=== PATIENT | male | born 1930 | race Caucasian/White ===

== ENCOUNTER → 2016-05-16 | Outpatient (CLI) | payer BC ==
[~2016-05-16] MED LIST: ASPEC325 PO; ASPI81TA28 PO; CAND32TA2 PO; CHROMAX PLUS PO; FLX5 PO; GARLTAB3 PO; LDDP5 TD; MULT-506 PO; NRV5 PO; OPTIRAY 320 IV PRN; OXYC-57 PO; PRED-301 PO; PRED10TA PO; PRED20TA PO; RED YEAST RICE PO; SYMIN INH; TAMS0.4C38 PO; VNTHFA/IN INH; [UNRECOGNIZED DRUG - CODE]; [UNRECOGNIZED DRUG - CODE] PO
[2016-05-16 16:14] LABS: BLOOD UREA NITROGEN 20 mg/dl (7-18); BUN/CREATININE RATIO 15.2 (10-20); CALCIUM 8.6 mg/dl (8.5-10.1); CARBON DIOXIDE 30 mmol/L (21-32); CHLORIDE 105 mmol/L (98-107); GLUCOSE 120 mg/dl (70-99); MAGNESIUM 2.3 mg/dl (1.8-2.4); POTASSIUM 4.2 mmol/L (3.5-5.1); SODIUM 143 mmol/L (136-145)
[2016-05-16 16:28] LABS: RATIO 8.3 mcg/mg (0-30.0)
--- NOTE | 2016-05-16 17:21 | DIAGNOSTIC IMAGING REPORT ---
ABDOMEN AND PELVIS CT WITH IV AND ORAL CONTRAST CT DOSE: 766.85 mGycm HISTORY: Generalized abdominal pain. Constipation. TECHNIQUE: Multiaxial CT images of the abdomen and pelvis were performed following the use of intravenous and oral contrast. COMPARISON STUDY: Abdomen and pelvis CT 03/07/2008. FINDINGS: The lung bases are essentially clear. No suspicious lytic or blastic osseous lesions. There are few hypodense lesions within the liver which remain stable. Therefore, these are considered to be benign and favor cysts. The largest in the right hepatic lobe measures 15 mm. Prior cholecystectomy. Small diverticulum at the second portion of the duodenum. The pancreas, adrenal glands are unremarkable. Bilateral cortical renal scarring remains unchanged. No hydronephrosis. No retroperitoneal lymphadenopathy. Mild thickening of the bladder wall is not significant changed. The prostate gland remains mildly enlarged. No pelvic fluid. The spleen is slight increased in size. However, the spleen measures 10 cm in length. A few colonic diverticula. Small to moderate amount of well-formed stool seen within the colon. No bowel wall thickening or obstruction. Normal appendix. IMPRESSION: 1. No bowel wall thickening or obstruction. 2. Small to moderate amount of well-formed stool seen within the colon. 3. The spleen has slightly increased in size compared to prior study. However, the spleen measures 10 cm in length which is considered to be within the range of normal limits. 4. Colonic diverticulosis. 5. Bladder wall thickening, unchanged. 6. Normal appendix. 7. Cholecystectomy. Electronically signed by: Kristopher Beaulieu M.D. 05/16/2016 5:20 PM Dictated Date/Time: 05/16/2016 5:12 PM
== END | disposition home or self-care (01) ==
LOC: C.CTS 14:53
PROVIDERS: ATTEND Family Medicine
DX: K59.00 Constipation, unspecified (principal); E11.9 Type 2 diabetes mellitus without complications; M54.5 Low back pain; G47.62 Sleep related leg cramps

== ENCOUNTER → 2016-06-12 | Outpatient (CLI) | payer BC ==
[~2016-06-12] MED LIST changes: -OPTIRAY 320 IV PRN
[2016-06-12 16:07] LABS: BASO % 0.4 %; BASO ABS # 0.07 K/uL (0-0.2); EOS % 14.3 %; HEMATOCRIT 42.7 % (42-52); IG% 0.8 %; LYMPH % 17.2 %; LYMPH ABS # 3.04 K/uL (1.2-3.4); MEAN CELL VOLUME 95.5 fL (80-100); MEAN CORPUSCULAR HEMOGLOBIN 32.9 pg (25-34); MEAN PLATELET VOLUME 10.9 fL (7.4-10.4); MONO % 8.9 %; NEUT % 58.4 %; PLATELET COUNT 345 K/uL (130-400); RED BLOOD COUNT 4.47 M/uL (4.7-6.1); WHITE BLOOD COUNT 17.63 K/uL (4.8-10.8)
--- NOTE | 2016-06-12 16:22 | DIAGNOSTIC IMAGING REPORT ---
HEAD CT NONCONTRAST CT DOSE: 724.83 mGy.cm HISTORY: PT WENT TO LAB FIRST - FALL, INTRACRANIAL INJURY W/ LOSS OF TECHNIQUE: Multiaxial CT images of the head were performed without the use of intravenous contrast. Automated exposure control was utilized for this study. Comparison: None. Findings: The paranasal sinuses and mastoid air cells are clear. The calvarium and skull base are intact. There is no mass, hematoma, midline shift, acute infarct. White matter hypodensity is nonspecific but suggestive of microvascular ischemic change. The ventricles and sulci demonstrate mild age-related involutional changes. Mildly depressed nasal bone fractures which appear to be old. Impression: No acute intracranial abnormality. Atrophy and microvascular ischemic changes. Electronically signed by: Kristopher Beaulieu M.D. 06/12/2016 4:20 PM Dictated Date/Time: 06/12/2016 4:14 PM
[2016-06-12 16:24] LABS: COMPLETE YES; MEAN CORPUSCULAR HGB CONC 34.4 g/dl (32-36)
[2016-06-12 16:37] LABS: ALB/GLOB RATIO 0.9 (0.9-2); ALKALINE PHOSPHATASE 52 U/L (45-117); ALT/SGPT 15 U/L (12-78); AST/SGOT 12 U/L (15-37); BLOOD UREA NITROGEN 22 mg/dl (7-18); BUN/CREATININE RATIO 15.4 (10-20); C-REACTIVE PROTEIN 9.33 mg/dl (0-0.29); CALCIUM 8.5 mg/dl (8.5-10.1); CARBON DIOXIDE 30 mmol/L (21-32); CHLORIDE 105 mmol/L (98-107); GLUCOSE 180 mg/dl (70-99); POTASSIUM 4.1 mmol/L (3.5-5.1); SODIUM 142 mmol/L (136-145)
[2016-06-12 17:05] LABS: LYME DISEASE AB IGG NEG (NEG); LYME DISEASE AB IGM NEG (NEG)
== END | disposition home or self-care (01) ==
LOC: C.CTS 15:25
PROVIDERS: ATTEND Family Medicine
DX: R21 Rash and other nonspecific skin eruption (principal); M62.81 Muscle weakness (generalized); M79.1 Myalgia; S06.9X9A Unspecified intracranial injury with loss of consciousness of unspecified duration, initial encounter; W06.XXXA Fall from bed, initial encounter

== ENCOUNTER 2016-06-14 08:29 | Inpatient (IN) | payer BC, OTHER ==
[~2016-06-14] VITALS: Ht 177.8 cm; Wt 80.0 kg
[~2016-06-14 08:29] MED LIST changes: -ASPI81TA28 PO; -CAND32TA2 PO; -FLX5 PO; -LDDP5 TD; -NRV5 PO; -PRED-301 PO; -PRED10TA PO; -PRED20TA PO; -SYMIN INH; -TAMS0.4C38 PO; -VNTHFA/IN INH; -[UNRECOGNIZED DRUG - CODE]
[2016-06-14] MEDS ORDERED: CAND32TA2 PO (09:05)
[2016-06-14] MEDS ORDERED: TAMS0.4C38 PO (09:05)
[2016-06-14] MEDS ORDERED: VNTHFA/IN INH (09:05)
[2016-06-14] MEDS ORDERED: ASPI81TA28 PO (09:05)
[2016-06-14] MEDS ORDERED: [UNRECOGNIZED DRUG - CODE] (09:07)
[2016-06-14] MEDS ORDERED: SODIUM CHLORIDE 0.9% 500ML 500 ML IV STA (09:31)
[2016-06-14] MEDS ORDERED: HYDROmorphone INJ 0.5 MG/0.5 ML SYR IV STA (09:31)
--- NOTE | 2016-06-14 09:34 | EMERGENCY ROOM VISIT NOTE ---
History Report prepared by Trera: Yariel Abbott Under the Supervision of: Dr. Kvng Sanchez M.D. First contact with patient: 09:21 Chief Complaint: PAIN (GENERALIZED) Stated Complaint: BODY PAIN History of Present Illness The patient is a 85 year old male who presents to the Emergency Room with complaints of worsening neck pain starting yesterday after a fall. The patient states that he was here, and they took a CT scan of his head however they did not image his neck. The patient states that when he fell he hit the back side of his head on the right side. The patient states that the pain is worsened with turning his neck. The patient additionally states that he feels generally very weak. The patient's state that the patient has been sick for about a month now, and he has had blood work done recently. The patient denies any abdominal pain. Source of History: patient, spouse/significant other Onset: yesterday Position: neck Timing: worsening Modifying Factors (Worsening): other (turning his neck) Associated Symptoms: + weakness, No abdominal pain Review of Systems See HPI for pertinent positives & negatives. A total of 10 systems reviewed and were otherwise negative. Past Medical & Surgical Medical Problems: (1) Asthma (2) Diabetes (3) HTN (hypertension) Surgical Problems: (1) H/O shoulder replacement Family History Diabetes mellitus FH: lung disease FHx: cancer Hypertension Social History Smoking Status: Former Smoker Marital Status: Housing Status: lives with family Occupation Status: retired Current/Historical Medications Scheduled Albuterol Hfa (Ventolin Hfa), 2-4 PUFFS INH Q6H Aspirin (Aspirin Ec), 81 MG PO DAILY Candesartan Cilexetil (Atacand), 1 TAB PO DAILY Multivitamin (Multivitamin), 1 TAB PO DAILY Tamsulosin Hcl (Flomax), 1 CAP PO DAILY Miscellaneous Medications Undecylenic Acid (Bulk) (Undecylenic Acid) Allergies Coded Allergies: Penicillins (Verified Allergy, Unknown, 06/14/16) Physical Exam Vital Signs Date Time Temp Pulse Resp B/P Pulse Ox O2 Delivery O2 Flow Rate FiO2 06/14/16 11:25 93 Room Air 06/14/16 09:57 77 16 154/77 93 Room Air 06/14/16 08:36 37.3 77 18 167/88 94 Room Air Physical Exam GENERAL: Patient is in moderate distress and uncomfortable appearing. HEENT: No acute trauma, normocephalic atraumatic, mucous membranes dry, no nasal congestion, no scleral icterus. NECK: Tenderness to palpation in the mid and upper right c-spine. Pain with any range of motion of the neck which is significantly reduced due to the pain. LUNGS: No dyspnea. Clear to auscultation and equal bilaterally. No wheeze, no rhonchi. HEART: Regular rate and rhythm. No murmurs, rubs, gallops appreciated. ABDOMEN: Soft, nontender, bowel sounds positive, no masses appreciated, no peritonitis. BACK: No midline tenderness, no CVA tenderness EXTREMITIES: Normal motion all extremities, no cyanosis, no edema. NEUROLOGIC: Alert and oriented, no acute motor or sensory deficits, no focal weakness, cranial nerves grossly intact. SKIN: No rash, no jaundice, no diaphoresis. Medical Decision & Procedures ER Provider Diagnostic Interpretation: X ray results and stated below per my interpretation and radiologist interpretation. Other radiology results and stated below per my review and radiologist interpretation: CHEST ONE VIEW PORTABLE CLINICAL HISTORY: Generalized Weakness COMPARISON STUDY: No previous studies for comparison. FINDINGS: The heart is mildly enlarged. There is a suboptimal inspiration. There is mild interstitial thickening, possibly secondary to a suboptimal inspiration. There is no lobar consolidation. There is no overt failure. There are no pleural effusions. There are postsurgical changes of a right shoulder arthroplasty.[ IMPRESSION: 1. Mild cardiomegaly 2. No evidence of focal pulmonary consolidation 3. Mild interstitial prominence but no evidence of overt failure Electronically signed by: Bhanu Kim M.D. 06/14/2016 10:02 AM Dictated Date/Time: 06/14/2016 10:[address] OF THE CERVICAL SPINE CLINICAL HISTORY: Right-sided neck pain status post trauma COMPARISON STUDY: No previous studies for comparison. CT DOSE: 406.95 mGy.cm TECHNIQUE: CT scan of the cervical spine was performed from the skull base to the thoracic inlet. Images are reviewed in the axial, sagittal, and coronal planes. IV contrast was not administered for this examination. FINDINGS: The visualized portions of the lung apices reveal no evidence of pneumothorax. The prevertebral soft tissues are normal. No fractures or traumatic subluxations are visualized. There are advanced multilevel degenerative changes. There is slight reversal of the normal cervical lordosis. 2.6 mm of anterior subluxation of C7 on T1 is felt to be degenerative. IMPRESSION: Multilevel degenerative change. Reversal of the normal cervical lordosis. No acute fractures or traumatic subluxations are visualized. Electronically signed by: Bhanu Kim M.D. 06/14/2016 10:25 AM Dictated Date/Time: 06/14/2016 10:22 AM Laboratory Results 06/14/16 09:50 Red Blood Count 4.41, Mean Corpuscular Volume 93.7, Mean Corpuscular Hemoglobin 31.7, Mean Corpuscular Hemoglobin Concent 33.9, Mean Platelet Volume 9.9, Neutrophils (%) (Auto) 58.8, Lymphocytes (%) (Auto) 16.4, Monocytes (%) (Auto) 9.4, Eosinophils (%) (Auto) 14.3, Basophils (%) (Auto) 0.4, Neutrophils # (Auto ) 10.60, Lymphocytes # (Auto) 2.95, Monocytes # (Auto) 1.69, Eosinophils # (Auto ) 2.57, Basophils # (Auto) 0.07 06/14/16 09:50 06/14/16 11:00 Test 06/14/16 09:50 06/14/16 11:00 06/14/16 12:30 White Blood Count 18.00 K/uL (4.8-10.8) Red Blood Count 4.41 M/uL (4.7-6.1) Hemoglobin 14.0 g/dL (14.0-18.0) Hematocrit 41.3 % (42-52) Mean Corpuscular Volume 93.7 fL (80-100) Mean Corpuscular Hemoglobin 31.7 pg (25-34) Mean Corpuscular Hemoglobin Concent 33.9 g/dl (32-36) Platelet Count 308 K/uL (130-400) Mean Platelet Volume 9.9 fL (7.4-10.4) Neutrophils (%) (Auto) 58.8 % Lymphocytes (%) (Auto) 16.4 % Monocytes (%) (Auto) 9.4 % Eosinophils (%) (Auto) 14.3 % Basophils (%) (Auto) 0.4 % Neutrophils # (Auto) 10.60 K/uL (1.4-6.5) Lymphocytes # (Auto) 2.95 K/uL (1.2-3.4) Monocytes # (Auto) 1.69 K/uL (0.11-0.59) Eosinophils # (Auto) 2.57 K/uL (0-0.5) Basophils # (Auto) 0.07 K/uL (0-0.2) RDW Standard Deviation 56.5 fL (36.4-46.3) RDW Coefficient of Variation 17.0 % (11.5-14.5) Immature Granulocyte % (Auto) 0.7 % Immature Granulocyte # (Auto) 0.12 K/uL (0.00-0.02) Anion Gap 4.0 mmol/L (3-11) Est Creatinine Clear Calc Drug Dose 46.5 ml/min Estimated GFR () 63.5 Estimated GFR (Non- 54.8 BUN/Creatinine Ratio 13.8 (10-20) Calcium Level 8.6 mg/dl (8.5-10.1) Phosphorus Level 3.2 mg/dl (2.5-4.9) Total Bilirubin 1.1 mg/dl (0.2-1) Alanine Aminotransferase (ALT/SGPT) 14 U/L (12-78) Alkaline Phosphatase 48 U/L (45-117) Creatine Kinase MB 1.1 ng/ml (0.5-3.6) Creatine Kinase MB Ratio (0-3.0) Troponin I < 0.015 ng/ml (0-0.045) C-Reactive Protein 11.20 mg/dl (0-0.29) Total Protein 7.0 gm/dl (6.4-8.2) Albumin 2.9 gm/dl (3.4-5.0) Lipase 146 U/L (73-393) Magnesium Level 2.2 mg/dl (1.8-2.4) Direct Bilirubin 0.2 mg/dl (0-0.2) Aspartate Amino Transf (AST/SGOT) 9 U/L (15-37) Total Creatine Kinase 61 U/L (39-308) Thyroid Stimulating Hormone (TSH) 0.985 uIu/ml (0.300-4.500) Urine Color YELLOW Urine Appearance CLEAR (CLEAR) Urine pH 5.5 (4.5-7.5) Urine Specific [place] 1.014 (1.000-1.030) Urine Protein NEG (NEG) Urine Glucose (UA) NEG (NEG) Urine Ketones NEG (NEG) Urine Occult Blood NEG (NEG) Urine Nitrite NEG (NEG) Urine Bilirubin NEG (NEG) Urine Urobilinogen NEG (NEG) Urine Leukocyte Esterase NEG (NEG) Urine WBC (Auto) 0 /hpf (0-5) Urine RBC (Auto) 0-4 /hpf (0-4) Urine Hyaline Casts (Auto) 0 /lpf (0-5) Urine Epithelial Cells (Auto) 0-5 /lpf (0-5) Urine Bacteria (Auto) NEG (NEG) Laboratory results as reviewed by me. Medications Administered Medications (Trade) Dose Ordered Sig/Christel Route Start Time Stop Time Status Last Admin Dose Admin Hydromorphone HCl 0.5 mg 0.5 mg NOW STAT IV 06/14/16 09:31 06/14/16 09:33 DC 06/14/16 10:00 0.5 MG Sodium Chloride 500 ml @ 999 mls/hr Q31M STAT IV 06/14/16 09:31 06/14/16 10:01 DC 06/14/16 10:00 999 MLS/HR Sodium Chloride (Nss 1000ml) 1,000 ml @ 80 mls/hr [id number] IV 06/14/16 12:30 07/14/16 12:29 06/14/16 15:42 80 MLS/HR ECG Indication: other (pain) Rate (beats per minute): 78 Rhythm: normal sinus Findings: no acute ischemic change, no ectopy ED Course 0921: The patient was evaluated in room B10. A complete history and physical exam was performed. 0931: Sodium Chloride 500 ml @ 999 mls/hr IV, Dilaudid Inj 0.5mg IV 1055: I reevaluated the patient, and he was resting. 1105: I discussed the patient's case with Dr. Gupta. He is going to evaluate the patient for further treatment. Medical Decision Differential: Sepsis, Infectious (UTI/Pneumonia/Meningitis/etc), Metabolic/ Electrolyte Abnormality, Cardiac, Hepatic, Endocrine, Toxicologic, Neurologic, cervical fracture, whiplash amongst other pathologies entertained. Pleasant 85 yr old male arrives with complaint of right neck pain and generalized weakness. Neck pain post fall last week with normal CT head already. No focal neural deficits. Right cervical TTP though fortunately CT Cervical negative. He has elevated WBC which is now compared to labs from several years ago. No fevers, UTI symptoms and CXR clear. No acute infectious rash appreciated. CRP is quite elevated consistent with inflammatory process. With enlarged spleen noted 1 month ago it is concerning that there may be some hematologic issue vs viral? He is not septic and without fevers would hold on abx unless clear source develops. Given weakness, continued pain and unusual inflammatory markers will bring in for further work-up, especially given he is too weak to get around safely. Consults Time Called: 1102 Consulting Physician: Dr. Gupta Returned Call: [phone] I discussed the patient's case with Dr. Gupta. He is going to evaluate the patient for further treatment. Impression Primary Impression: Generalized weakness Additional Impressions: Fall Ambulatory dysfunction Inflammatory process Scribe Attestation The scribe's documentation has been prepared under my direction and personally reviewed by me in its entirety. I confirm that the note above accurately reflects all work, treatment, procedures, and medical decision making performed by me. Departure Information Dispostion Being Evaluated By Hospitalist James Monet M.D. (PCP) Problem Qualifiers Additional Impressions: Fall Encounter type: initial encounter Qualified Codes: W19.XXXA - Unspecified fall, initial encounter
--- NOTE | 2016-06-14 10:04 | DIAGNOSTIC IMAGING REPORT ---
CHEST ONE VIEW PORTABLE CLINICAL HISTORY: Generalized Weakness COMPARISON STUDY: No previous studies for comparison. FINDINGS: The heart is mildly enlarged. There is a suboptimal inspiration. There is mild interstitial thickening, possibly secondary to a suboptimal inspiration. There is no lobar consolidation. There is no overt failure. There are no pleural effusions. There are postsurgical changes of a right shoulder arthroplasty.[ IMPRESSION: 1. Mild cardiomegaly 2. No evidence of focal pulmonary consolidation 3. Mild interstitial prominence but no evidence of overt failure Electronically signed by: Bhanu Kim M.D. 06/14/2016 10:02 AM Dictated Date/Time: 06/14/2016 10:01 AM
[2016-06-14 10:23] LABS: BASO % 0.4 %; BASO ABS # 0.07 K/uL (0-0.2); COMPLETE YES; EOS % 14.3 %; HEMATOCRIT 41.3 % (42-52); IG% 0.7 %; LYMPH % 16.4 %; LYMPH ABS # 2.95 K/uL (1.2-3.4); MEAN CELL VOLUME 93.7 fL (80-100); MEAN CORPUSCULAR HEMOGLOBIN 31.7 pg (25-34); MEAN CORPUSCULAR HGB CONC 33.9 g/dl (32-36); MEAN PLATELET VOLUME 9.9 fL (7.4-10.4); MONO % 9.4 %; NEUT % 58.8 %; PLATELET COUNT 308 K/uL (130-400); RED BLOOD COUNT 4.41 M/uL (4.7-6.1)
--- NOTE | 2016-06-14 10:26 | DIAGNOSTIC IMAGING REPORT ---
CT OF THE CERVICAL SPINE CLINICAL HISTORY: Right-sided neck pain status post trauma COMPARISON STUDY: No previous studies for comparison. CT DOSE: 406.95 mGy.cm TECHNIQUE: CT scan of the cervical spine was performed from the skull base to the thoracic inlet. Images are reviewed in the axial, sagittal, and coronal planes. IV contrast was not administered for this examination. FINDINGS: The visualized portions of the lung apices reveal no evidence of pneumothorax. The prevertebral soft tissues are normal. No fractures or traumatic subluxations are visualized. There are advanced multilevel degenerative changes. There is slight reversal of the normal cervical lordosis. 2.6 mm of anterior subluxation of C7 on T1 is felt to be degenerative. IMPRESSION: Multilevel degenerative change. Reversal of the normal cervical lordosis. No acute fractures or traumatic subluxations are visualized. Electronically signed by: Bhanu Kim M.D. 06/14/2016 10:25 AM Dictated Date/Time: 06/14/2016 10:22 AM
[2016-06-14 10:51] LABS: ALKALINE PHOSPHATASE 48 U/L (45-117); ALT/SGPT 14 U/L (12-78); BLOOD UREA NITROGEN 17 mg/dl (7-18); BUN/CREATININE RATIO 13.8 (10-20); CALCIUM 8.6 mg/dl (8.5-10.1); CARBON DIOXIDE 31 mmol/L (21-32); CHLORIDE 100 mmol/L (98-107); GLUCOSE 157 mg/dl (70-99); PHOSPHORUS 3.2 mg/dl (2.5-4.9); SODIUM 135 mmol/L (136-145)
[2016-06-14 11:25] VITALS: O2SAT 93; Ht 177.8 cm; Wt 80.0 kg
[2016-06-14 12:03] LABS: MAGNESIUM 2.2 mg/dl (1.8-2.4); POTASSIUM 3.9 mmol/L (3.5-5.1)
[2016-06-14] MEDS ORDERED: MAGNESIUM HYDROXIDE SUSP 30 ML UDC PO PRN (12:30)
[2016-06-14] MEDS ORDERED: KETOROLAC TROMETHAMINE 15 MG/ML VIAL IM PRN (12:30)
[2016-06-14] MEDS ORDERED: ACETAMINOPHEN 325 MG TAB PO PRN (12:30)
[2016-06-14] MEDS ORDERED: ALUMINUM/MAGNESIUM/SIMETH (MAALOX MAX) 30 ML UDC PO PRN (12:30)
[2016-06-14] MEDS ORDERED: ONDANSETRON INJ 2 MG/ML 2 ML VIAL IV PRN (12:30)
[2016-06-14] MEDS ORDERED: POLYETHYLENE (MIRALAX) 17 GM PACK PO PRN (12:30)
[2016-06-14 12:49] LABS: URINE APPEARANCE CLEAR (CLEAR); URINE BILIRUBIN NEG (NEG); URINE COLOR YELLOW; URINE EPITHELIAL CELL AUTO 0-5 /lpf (0-5); URINE NITRITE NEG (NEG); URINE PH 5.5 (4.5-7.5); URINE SPECIFIC GRAVITY 1.014 (1.000-1.030); UROBILINOGEN NEG (NEG); ZZUR CULT IF INDIC CLEAN CATCH NO
[2016-06-14 12:50] LABS: MANUAL MICROSCOPIC REQUIRED? NO; REVIEW REQ? NO
[2016-06-14] MEDS ORDERED: IV FLUIDS COMPLETED PRN (13:45)
[2016-06-14] MEDS ORDERED: HYDROmorphone INJ 0.5 MG/0.5 ML SYR ONE (14:02)
--- NOTE | 2016-06-14 14:31 | History and Physical ---
History & Physical Date & Time of Service: Jun 14, 2016 at 13:17 Chief Complaint: Body Pain Primary Care Physician: James Sinha M.D. History of Present Illness Source: patient, family, spouse, clinic records, hospital records Mr. Yap is an 85 y/o male with PMHx of Chronic Asthma/Bronchitis, HTN, T2DM ( managed off medications), and Mild BENSON (CPAP non-compliance) who presents to the ED c/o generalized body aches x 1 month and acute neck pain x 1 day. Patient reports that he has not felt his normal self in approx. 1 month. He has chronic bronchitis with associated productive cough that has remained unchanged during this month. Produces thick sputum and is light in color and denies SOB. However patient notes that he has had progressive lower extremity weakness that initially was manageable as he continued his normal exercise routine. As the weakness progressed he was not able to do his normal walks or go to the gym. In addition to the weakness he reports generalized aches. States "it felt like I had the flu, I just ache all over". Due to this ongoing weakness and aches he states that he fell on Thursday. He feels that his legs give out and denies precipitating symptoms but reports hitting the back of his head with LOC and was on the floor approx. 30-40 minutes. He reports R sided neck pain at the time but only head a Head CT which was negative for acute findings suggestive of stroke or cerebral hemorrhage. He has had poor sleep and neck pain has progressively gotten work. Pain is exacerbated with movements of the neck. States he takes a daily ASA and has only been using that for relief. Family was concerned as lower extremity weakness as progressed and they have difficulty helping him move at home. Was in the process of accessing a hospital bed to help at home. Of note patient also reports going 5 days without BP medications because he ran out and a refill was recently placed. Also, blood work was conducted as an outpatient which revealed similar findings as ED labs and a negative Lyme. He denies known rheumatological/immunological disorders. He denies fever/chills, CP, SOB, N/V, abdominal pain, dysuria, constipation/ diarrhea. In the ED, he was hydrated and pain managed with Dilaudid 0.5 mg IV. WBC noted at 18. CRP of 11.2. CXR with mild cardiomegaly but no infectious consolidation appreciated. CT of cervical spine without fracture but notes of degenerative changes. Abd/Pelvis CT (2016) with enlarged spleen compared to previous imaging however is at 10 cm. Family History Diabetes mellitus FH: lung disease FHx: cancer Hypertension Social History Smoking Status: Former Smoker Smokeless Tobacco Use: No Alcohol Use: none Drug Use: none Marital Status: Occupational Status: retired Immunizations History of Influenza Vaccine: Yes History of Tetanus Vaccine?: Yes History of Pneumococcal: Yes History of Hepatitis B Vaccine: No Multi-Drug Resistant Organisms History of MDRO: No Allergies Coded Allergies: Penicillins (Verified Allergy, Unknown, 06/14/16) Home Medications Scheduled Albuterol Hfa (Ventolin Hfa), 2-4 PUFFS INH Q6H Aspirin (Aspirin Ec), 81 MG PO DAILY Candesartan Cilexetil (Atacand), 1 TAB PO DAILY Multivitamin (Multivitamin), 1 TAB PO DAILY Tamsulosin Hcl (Flomax), 1 CAP PO DAILY Miscellaneous Medications Undecylenic Acid (Bulk) (Undecylenic Acid) Review of Systems Constitutional: + weakness, No chills, No fever Eyes: No worsening of vision ENT: No nasal symptoms, No sore throat, No trouble swallowing Respiratory: + cough (chronic), + sputum, No shortness of breath Cardiovascular: No chest pain, No palpitations Abdomen: No constipation, No diarrhea, No nausea, No pain, No vomiting Musculoskeletal: + muscle pain (R neck 2/2 fall), No calf pain, No swelling Genitourinary - Male: No dysuria Neurologic: + balance problems, + weakness (generalized lower extremity b/l), No numbness/tingling Hematologic / Lymphatic: No abnormal bleeding/bruising, No clotting problems Integumentary: No rash Physical Exam Vital Signs Date Time Temp Pulse Resp B/P Pulse Ox O2 Delivery O2 Flow Rate FiO2 06/14/16 11:25 93 Room Air 06/14/16 09:57 77 16 154/77 93 Room Air 06/14/16 08:36 37.3 77 18 167/88 94 Room Air General Appearance: WD/WN, no apparent distress Head: normocephalic, atraumatic Eyes: PERRL, EOMI, sclerae normal ENT: hearing grossly normal Neck: no JVD, trachea midline, + pertinent finding (tenderness to palpation along musculature; no tenderness to palpation of cervical spine) Respiratory/Chest: lungs clear, normal breath sounds, no respiratory distress, no accessory muscle use Cardiovascular: regular rate, rhythm, no gallop, no murmur Abdomen/GI: normal bowel sounds, non tender, soft Extremities/Musculoskelatal: no calf tenderness, no pedal edema Neurologic/Psych: alert, oriented x 3, + pertinent finding (intention tremor appreciated with movement of upper and lower extremities b/l) Skin: normal color, warm/dry Diagnostics Laboratory Results Results Past 24 Hours Test 06/14/16 09:50 06/14/16 11:00 06/14/16 12:30 Range/Units White Blood Count 18.00 4.8-10.8 K/uL Red Blood Count 4.41 4.7-6.1 M/uL Hemoglobin 14.0 14.0-18.0 g/dL Hematocrit 41.3 42-52 % Mean Corpuscular Volume 93.7 80-100 fL Mean Corpuscular Hemoglobin 31.7 25-34 pg Mean Corpuscular Hemoglobin Concent 33.9 32-36 g/dl Platelet Count 308 130-400 K/uL Mean Platelet Volume 9.9 7.4-10.4 fL Neutrophils (%) (Auto) 58.8 % Lymphocytes (%) (Auto) 16.4 % Monocytes (%) (Auto) 9.4 % Eosinophils (%) (Auto) 14.3 % Basophils (%) (Auto) 0.4 % Neutrophils # (Auto) 10.60 1.4-6.5 K/uL Lymphocytes # (Auto) 2.95 1.2-3.4 K/uL Monocytes # (Auto) 1.69 0.11-0.59 K/uL Eosinophils # (Auto) 2.57 0-0.5 K/uL Basophils # (Auto) 0.07 0-0.2 K/uL RDW Standard Deviation 56.5 36.4-46.3 fL RDW Coefficient of Variation 17.0 11.5-14.5 % Immature Granulocyte % (Auto) 0.7 % Immature Granulocyte # (Auto) 0.12 0.00-0.02 K/uL Sodium Level 135 136-145 mmol/L Potassium Level 3.9 3.5-5.1 mmol/L Chloride Level 100 98-107 mmol/L Carbon Dioxide Level 31 21-32 mmol/L Anion Gap 4.0 3-11 mmol/L Blood Urea Nitrogen 17 7-18 mg/dl Creatinine 1.20 0.60-1.40 mg/dl Est Creatinine Clear Calc Drug Dose 46.5 ml/min Estimated GFR () 63.5 Estimated GFR (Non- 54.8 BUN/Creatinine Ratio 13.8 10-20 Random Glucose 157 70-99 mg/dl Calcium Level 8.6 8.5-10.1 mg/dl Phosphorus Level 3.2 2.5-4.9 mg/dl Magnesium Level 2.2 1.8-2.4 mg/dl Total Bilirubin 1.1 0.2-1 mg/dl Direct Bilirubin 0.2 0-0.2 mg/dl Aspartate Amino Transf (AST/SGOT) 9 15-37 U/L Alanine Aminotransferase (ALT/SGPT) 14 12-78 U/L Alkaline Phosphatase 48 45-117 U/L Total Creatine Kinase 61 39-308 U/L Creatine Kinase MB 1.1 0.5-3.6 ng/ml Creatine Kinase MB Ratio 0-3.0 Troponin I < 0.015 0-0.045 ng/ml C-Reactive Protein 11.20 0-0.29 mg/dl Total Protein 7.0 6.4-8.2 gm/dl Albumin 2.9 3.4-5.0 gm/dl Lipase 146 73-393 U/L Urine Color YELLOW Urine Appearance CLEAR CLEAR Urine pH 5.5 4.5-7.5 Urine Specific [place] 1.014 1.000-1.030 Urine Protein NEG NEG Urine Glucose (UA) NEG NEG Urine Ketones NEG NEG Urine Occult Blood NEG NEG Urine Nitrite NEG NEG Urine Bilirubin NEG NEG Urine Urobilinogen NEG NEG Urine Leukocyte Esterase NEG NEG Urine WBC (Auto) 0 0-5 /hpf Urine RBC (Auto) 0-4 0-4 /hpf Urine Hyaline Casts (Auto) 0 0-5 /lpf Urine Epithelial Cells (Auto) 0-5 0-5 /lpf Urine Bacteria (Auto) NEG NEG Diagnostic Radiology CHEST ONE VIEW PORTABLE CLINICAL HISTORY: Generalized Weakness COMPARISON STUDY: No previous studies for comparison. FINDINGS: The heart is mildly enlarged. There is a suboptimal inspiration. There is mild interstitial thickening, possibly secondary to a suboptimal inspiration. There is no lobar consolidation. There is no overt failure. There are no pleural effusions. There are postsurgical changes of a right shoulder arthroplasty.[ IMPRESSION: 1. Mild cardiomegaly 2. No evidence of focal pulmonary consolidation 3. Mild interstitial prominence but no evidence of overt failure CT OF THE CERVICAL SPINE CLINICAL HISTORY: Right-sided neck pain status post trauma COMPARISON STUDY: No previous studies for comparison. CT DOSE: 406.95 mGy.cm TECHNIQUE: CT scan of the cervical spine was performed from the skull base to the thoracic inlet. Images are reviewed in the axial, sagittal, and coronal planes. IV contrast was not administered for this examination. FINDINGS: The visualized portions of the lung apices reveal no evidence of pneumothorax. The prevertebral soft tissues are normal. No fractures or traumatic subluxations are visualized. There are advanced multilevel degenerative changes. There is slight reversal of the normal cervical lordosis. 2.6 mm of anterior subluxation of C7 on T1 is felt to be degenerative. IMPRESSION: Multilevel degenerative change. Reversal of the normal cervical lordosis. No acute fractures or traumatic subluxations are visualized. Impression Assessment and Plan Mr. Yap is an 85 y/o male with PMHx of Chronic Asthma/Bronchitis, HTN, T2DM ( managed off medications), and Mild BENSON (CPAP non-compliance) who presents to the ED c/o generalized body aches x 1 month and acute neck pain x 1 day. Generalized Weakness: Elevated CRP - Infectious Etiology Unlikely - NSS 80 mL/hr - Trend CRP and CBC - elevations may be reactive in setting of recent fall - HbA1c - H/O T2DM off medications - denies numbness/tingling - MRI Lumbar Spine - PT/OT evaluations Recent Fall: LOC possible Syncope vs Leg Weakness - No evidence of rhabdomyolysis appreciated on labs; No focal neurological deficits appreciated - CT head negative but will obtain Brain MRI - U/S Carotids Neck Pain: No Fx on Imaging - Toradol 15 mg IV PRN and Lidocaine patch - Warm/Cold compresses HTN: - Cozaar 50 mg as interchange for Candesartan - Hydralazine 10 mg PRN Splenomegaly: - Kayla-Damian - reference lab DVT Prophylaxis: - Heparin 5000 units SC Q12H Code Status: FULL RESUSCITATION Disposition: - Re-evaluate labs in AM and assess symptoms - Await PT/OT evaluations - Rx for hospital bed - will discuss with case management for assistance with durable medical equipment set-up Level of Care Med/Surg Advanced Directives Existing Living Will: Yes Existing Power of Sustainable Design Consultant: Yes Resuscitation Status FULL RESUSCITATION VTE Prophylaxis VTE Risk Assessment Done? Y/N: Yes Risk Level: Moderate Reviewed: Pt Seen/Exam by Me, RN Notes, HO Notes, Prior Records, Labs, EKG History I agree with PA H&P with some modifications as below Mr. Yap is an 85 y/o male with PMHx of Chronic Asthma/Bronchitis, HTN, T2DM ( managed off medications), and Mild BENSON (CPAP non-compliance) who presents to the ED c/o generalized body aches x 1 month and acute neck pain x 1 day. Constitutional: denies: chills EENTM: denies: tearing Respiratory: negative: cough Genitourinary: negative discharge Musculoskeletal: positive: back pain, muscle pain (neck) Neurological/Psych: negative: depressed Hematologic/Lymphatic: negative: anemia General Appearance: WD/WN, no apparent distress Eye Exam: bilateral eye normal inspection Ears, Nose, Throat: hearing grossly normal, pharynx normal Neck: trachea midline, tender lateral Respiratory: chest non-tender, no respiratory distress Cardiovascular: regular rate, rhythm, no gallop Gastrointestinal: soft Extremities: normal inspection, no pedal edema Neurologic/Psychiatric: no motor/sensory deficits, alert, normal mood/affect, oriented x 3 Skin Characteristics: normal color Assessment/Plan A 85 y/o male with PMHx of Chronic Asthma/Bronchitis, HTN, T2DM (managed off medications), and Mild BENSON (CPAP non-compliance) who presents to the ED c/o generalized body aches x 1 month and acute neck pain x 1 day. Generalized Weakness: Elevated CRP, infectious Etiology Unlikely admit start NSS 80 mL/hr check MRI Lumbar Spine. check MRI brain r/o CVA PT/OT evaluations Recent Fall: LOC possible Syncope vs Leg Weakness No evidence of rhabdomyolysis appreciated on labs; No focal neurological deficits appreciated CT head negative but will obtain Brain MRI check U/S Carotids recently (3 weeks ago)had ECHO at outpatient [facility] office, need to obtain it Neck Pain: No Fx on Imaging start Toradol 15 mg IV PRN and Lidocaine patch, add PPI for stomach protection Warm/Cold compresses HTN: start Cozaar 50 mg as interchange for Candesartan Hydralazine 10 mg PRN Splenomegaly: check Kayla-Damian virus DVT Prophylaxis: Heparin 5000 units SC Q12H FULL RESUSCITATION May need placement pending PT/OT evals time spent 50 min case discussed with Meenu CARDENAS
--- NOTE | 2016-06-14 15:28 | DIAGNOSTIC IMAGING REPORT ---
ULTRASOUND OF THE CAROTID ARTERIES CLINICAL HISTORY: Syncope COMPARISON STUDY: None. TECHNIQUE: Real-time, grayscale, and color Doppler sonography of the carotid arteries was performed. Imaging reviewed in the transverse and longitudinal planes. NASCET criteria was utilized for stenosis calcification. FINDINGS: There is mild calcific shadowing atherosclerotic plaque present bilaterally. The peak systolic velocity within the right internal carotid artery is 92 cm/sec. The systolic velocity ratio of right internal to common carotid artery is 1.3. The peak systolic velocity within the left internal carotid artery is 103 cm/sec. The systolic velocity ratio left internal to common carotid artery is 1.5. Antegrade flow is seen in the vertebral arteries. The external carotid arteries are patent. IMPRESSION: Atheromatous plaque. No evidence of hemodynamically significant carotid stenosis Electronically signed by: Bhanu Kim M.D. 06/14/2016 3:27 PM Dictated Date/Time: 06/14/2016 3:25 PM
[2016-06-14 15:38] VITALS: BP 183/95; PULSE 75; TEMP 36.9; O2SAT 93
[2016-06-14] MEDS: SODIUM CHLORIDE 0.9% 1000ML 1,000 ML IV SCH (15:42)
[2016-06-14 16:20] LABS: INR 1.1 (0.9-1.1); PARTIAL THROMBOPLASTIN RATIO 1.1; PROTHROMBIN TIME (PATIENT) 11.9 SECONDS (9.0-12.0)
[2016-06-14 16:44] VITALS: O2SAT 93
[2016-06-14] MEDS: LOSARTAN POTASSIUM 50 MG TAB PO SCH (17:04)
[2016-06-14] MEDS: ALBUTEROL HFA 8 GM INHALER INH SCH ×2 (17:38→23:41)
[2016-06-14] MEDS: HEPARIN SOD 5000 UNIT/0.5 ML CARP SQ SCH (21:30)
[2016-06-15 00:05] VITALS: BP 154/85; PULSE 73; TEMP 36.3; O2SAT 92
[2016-06-15] MEDS: SODIUM CHLORIDE 0.9% 1000ML 1,000 ML IV SCH ×2 (00:59→14:21)
[2016-06-15] MEDS: ALBUTEROL HFA 8 GM INHALER INH SCH ×4 (05:47→23:44)
[2016-06-15 06:49] LABS: BASO % 0.4 %; BASO ABS # 0.07 K/uL (0-0.2); COMPLETE YES; EOS % 18.1 %; HEMATOCRIT 42.8 % (42-52); IG% 0.8 %; LYMPH % 24.7 %; LYMPH ABS # 4.27 K/uL (1.2-3.4); MEAN CELL VOLUME 95.3 fL (80-100); MEAN CORPUSCULAR HEMOGLOBIN 32.7 pg (25-34); MEAN CORPUSCULAR HGB CONC 34.3 g/dl (32-36); MEAN PLATELET VOLUME 10.4 fL (7.4-10.4); MONO % 7.2 %; NEUT % 48.8 %; PLATELET COUNT 312 K/uL (130-400); RED BLOOD COUNT 4.49 M/uL (4.7-6.1); WHITE BLOOD COUNT 17.27 K/uL (4.8-10.8)
[2016-06-15 07:18] LABS: BUN/CREATININE RATIO 14.7 (10-20); CALCIUM 8.5 mg/dl (8.5-10.1); CREATININE 1.2 mg/dl (0.60-1.40); MAGNESIUM 2.3 mg/dl (1.8-2.4); POTASSIUM 3.8 mmol/L (3.5-5.1)
[2016-06-15 07:20] LABS: C-REACTIVE PROTEIN 13.8 mg/dl (0-0.29)
[2016-06-15 08:18] VITALS: BP 146/81; PULSE 73; TEMP 36.9; O2SAT 95
[2016-06-15] MEDS: ASPIRIN 81 MG ECTAB PO SCH (08:32)
[2016-06-15] MEDS: TAMSULOSIN HCL 0.4 MG CAP PO SCH (08:32)
[2016-06-15] MEDS: PANTOprazole SOD 40 MG TAB PO SCH (08:32)
[2016-06-15] MEDS: LOSARTAN POTASSIUM 50 MG TAB PO SCH (08:32)
[2016-06-15] MEDS: LIDODERM (LIDOCAINE) PATCH 5% TD SCH (08:34)
[2016-06-15] MEDS: HEPARIN SOD 5000 UNIT/0.5 ML CARP SQ SCH ×2 (08:41→20:35)
[2016-06-15] MEDS ORDERED: ALBUT/IPRATROP 3MG/0.5MG NEB 3 ML VIAL INH PRN (08:45)
[2016-06-15] MEDS ORDERED: CANDESARTAN CILEXETIL PO SCH (09:00)
[2016-06-15] MEDS ORDERED: KETOROLAC TROMETHAMINE 15 MG/ML VIAL IV. PRN (09:00)
[2016-06-15] MEDS ORDERED: HYDROmorphone INJ 1 MG/ML SYR IV STA (09:11)
[2016-06-15] MEDS ORDERED: CYCLOBENZAPRINE HCL 5 MG TAB PO PRN (09:15)
[2016-06-15] MEDS ORDERED: CYCLOBENZAPRINE HCL 5 MG TAB PO ONE (09:30)
[2016-06-15] MEDS ORDERED: BUDESONIDE/FORMOTEROL FUMARATE 160/4.5 60 PUFFS/INHALER INH ONE (10:00)
--- NOTE | 2016-06-15 10:46 | DIAGNOSTIC IMAGING REPORT ---
Brain MRI WITHOUT CONTRAST HISTORY: Generalized weakness. Stroke symptoms. TECHNIQUE: Multiplanar multisequence MRI of the brain was performed without the use of contrast. COMPARISON STUDY: Head CT 06/12/2016. FINDINGS: There is no mass, hematoma, midline shift, or acute infarct. The paranasal sinuses are clear. The mastoid air cells are clear. The ventricles and sulci demonstrate mild age-related involutional changes. Scattered foci of T2 hyperintensity seen within the periventricular and subcortical white matter are nonspecific but suggestive of mild microvascular ischemic changes. The major vascular flow voids at the skull base are well-maintained. IMPRESSION: No acute intracranial abnormality. Scattered foci of T2 hyperintensity seen within the periventricular and subcortical white matter are nonspecific but favor microvascular ischemic change. Electronically signed by: Kristopher Beaulieu M.D. 06/15/2016 10:44 AM Dictated Date/Time: 06/15/2016 10:38 AM
--- NOTE | 2016-06-15 11:04 | DIAGNOSTIC IMAGING REPORT ---
LUMBAR SPINE MRI HISTORY: Low back pain. Radiculopathy TECHNIQUE: Multiplanar multisequence MRI of the lumbar spine was performed without the use of contrast. COMPARISON: None. FINDINGS: For the purpose of the report the L5-S1 disc space will be located on axial image 31 of 33. Mild levoscoliosis. Alignment is intact. Moderate to space narrowing within the lower thoracic spine. Moderate to space narrowing at L1-L2 and L5-S1. Severe disc space narrowing at L2-L3. Mild disc space narrowing at L3-L4. Endplate degenerative changes and small osteophytes seen within the majority of the lumbar spine. Small broad-based posterior disc bulge at T12-L1 resulting in minimal central canal narrowing. Subcutaneous edema within the lumbar region. The conus terminates at the L2 level. L1-L2: Tiny broad-based posterior disc bulge without significant central canal or neural foraminal narrowing. L2-L3: Small broad-based posterior disc bulge asymmetric to the right with a small focal central disc protrusion. This results in mild central canal narrowing. There is mild bilateral neural foraminal narrowing. L3-L4: Broad-based posterior disc bulge with ligamentum and facet hypertrophy asymmetric to the right. This results in mild central canal and moderate right neural foraminal narrowing. L4-L5: Small broad-based posterior disc bulge with facet hypertrophy resulting in mild central canal and mild bilateral neural foraminal narrowing. L5-S1: No significant central canal or neural foraminal narrowing. IMPRESSION: 1. No fracture or subluxation within the lumbar spine. 2. Levoscoliosis. 3. Multilevel lumbar spondylosis as described above most pronounced at the L2-L3 and L3-L4 levels. Electronically signed by: Kristopher Beaulieu M.D. 06/15/2016 11:03 AM Dictated Date/Time: 06/15/2016 10:56 AM
--- NOTE | 2016-06-15 14:21 | Progress Note ---
Subjective Date of Service: Jun 15, 2016. (Meenu Swanson PA-C) Date of Service: 06/15/16 agree with PA note patient c/o left shoulder pain (Caden Valdez MD) Subjective Pt evaluation today including: conversation w/ patient, conversation w/ family , physical exam, chart review, lab review, review of studies, review of inpatient medication list Patient seen and evaluated. No acute events overnight. Noting improvement in neck pain. Ambulation has been limited to assess improvement. Multiple family at bedside and updated on current findings and plan. Patient notes that he has a H/O possible viral meningitis at 14 but no meningeal signs appreciated (Meenu Swanson PA-C) Pt evaluation today including: conversation w/ patient, conversation w/ family , physical exam, chart review, review of studies, review of inpatient medication list (Caden Valdez MD) Problem List Medical Problems: (1) Ambulatory dysfunction Status: Acute (2) Fall Status: Acute (3) Generalized weakness Status: Acute (4) Inflammatory process Status: Acute (Meenu Swanson PA-C) Review of Systems Constitutional: + weakness, No chills, No fever Eyes: No worsening of vision Respiratory: No cough, No shortness of breath Cardiac: No chest pain Abdomen: No nausea, No pain, No vomiting Musculoskeletal: + problem reported (R neck pain - improving) Male : No dysuria Neurologic: No numbness/tingling, No vertigo Skin: No rash (Meenu Swanson PA-C) Constitutional: No fever ENT: No hearing loss Respiratory: No cough Cardiac: No chest pain Abdomen: No pain Musculoskeletal: + joint pain (left shoulder) Male : No dysuria Neurologic: No memory loss Psychiatric: No depression symptoms (Caden Valdez MD) Objective Vital Signs Date Time Temp Pulse Resp B/P Pulse Ox O2 Delivery O2 Flow Rate FiO2 06/15/16 08:18 36.9 73 18 146/81 95 Room Air 06/15/16 08:00 Room Air 06/15/16 00:05 36.3 73 20 154/85 92 Room Air 06/14/16 23:45 Room Air 06/14/16 20:00 Room Air 06/14/16 16:44 93 Room Air 06/14/16 15:38 36.9 75 20 183/95 93 Room Air (Meenu Swanson PA-C) Physical Exam General Appearance: WD/WN, no apparent distress Eyes: sclerae normal ENT: hearing grossly normal Neck: supple, no JVD, trachea midline Respiratory/Chest: lungs clear, normal breath sounds, no respiratory distress, no accessory muscle use Cardiovascular: regular rate, rhythm, no gallop, no murmur Abdomen: normal bowel sounds, non tender, soft Extremities: no pedal edema, no calf tenderness, + pertinent finding (strength equal bilat; intention tremor remains) Neurologic/Psychiatric: alert, oriented x 3 Skin: normal color, warm/dry (Meenu Swanson PA-C) General Appearance: WD/WN, no apparent distress Eyes: normal inspection, EOMI ENT: hearing grossly normal, pharynx normal Neck: no adenopathy, no JVD Respiratory/Chest: chest non-tender, no respiratory distress Cardiovascular: regular rate, rhythm, no edema Abdomen: normal bowel sounds, soft Extremities: normal range of motion, normal inspection, + pertinent finding ( left shoulder tenderness) Neurologic/Psychiatric: alert Skin: normal color (Caden Valdez MD) Laboratory Results Last 24 Hours Test 06/14/16 15:58 06/15/16 06:18 06/15/16 13:00 Prothrombin Time 11.9 SECONDS Prothromb Time International Ratio 1.1 Activated Partial Thromboplast Time 28.7 SECONDS Partial Thromboplastin Ratio 1.1 White Blood Count 17.27 K/uL Red Blood Count 4.49 M/uL Hemoglobin 14.7 g/dL Hematocrit 42.8 % Mean Corpuscular Volume 95.3 fL Mean Corpuscular Hemoglobin 32.7 pg Mean Corpuscular Hemoglobin Concent 34.3 g/dl Platelet Count 312 K/uL Mean Platelet Volume 10.4 fL Neutrophils (%) (Auto) 48.8 % Lymphocytes (%) (Auto) 24.7 % Monocytes (%) (Auto) 7.2 % Eosinophils (%) (Auto) 18.1 % Basophils (%) (Auto) 0.4 % Neutrophils # (Auto) 8.42 K/uL Lymphocytes # (Auto) 4.27 K/uL Monocytes # (Auto) 1.24 K/uL Eosinophils # (Auto) 3.13 K/uL Basophils # (Auto) 0.07 K/uL RDW Standard Deviation 56.2 fL RDW Coefficient of Variation 16.7 % Immature Granulocyte % (Auto) 0.8 % Immature Granulocyte # (Auto) 0.14 K/uL Sodium Level 141 mmol/L Potassium Level 3.8 mmol/L Chloride Level 103 mmol/L Carbon Dioxide Level 26 mmol/L Anion Gap 12.0 mmol/L Blood Urea Nitrogen 18 mg/dl Creatinine 1.20 mg/dl Est Creatinine Clear Calc Drug Dose 46.5 ml/min Estimated GFR () 63.5 Estimated GFR (Non- 54.8 BUN/Creatinine Ratio 14.7 Random Glucose 116 mg/dl Calcium Level 8.5 mg/dl Magnesium Level 2.3 mg/dl C-Reactive Protein 13.80 mg/dl Erythrocyte Sedimentation Rate 45 mm/hr Total Creatine Kinase 55 U/L (Meenu Swanson, PA-C) Assessment and Plan Mr. Yap is an 85 y/o male with PMHx of Chronic Asthma/Bronchitis, HTN, T2DM ( managed off medications), and Mild BENSON (CPAP non-compliance) who presents to the ED c/o generalized body aches x 1 month and acute neck pain x 1 day. Generalized Weakness: Elevated CRP - Infectious Etiology Unlikely - NSS 80 mL/hr - Trend CRP and CBC - elevations may be reactive in setting of recent fall - HbA1c - H/O T2DM off medications - denies numbness/tingling - A1c still pending - MRI Lumbar Spine - image and report reviewed - mild central canal narrowing; evidence of degenerative changes; and levoscoliosis - PT/OT evaluations - Prednisone 20 mg daily - monitor for improvement -- Consideration for gabapentin? will defer at present time - Concern for rheumatological etiology vs neuromuscular - may need consultation -- ANCA, Aldolase, Creatinine Phosphokinase, ESR - pending - HIM request for Echo report at [facility] Recent Fall: LOC possible Syncope vs Leg Weakness - No evidence of rhabdomyolysis appreciated on labs; No focal neurological deficits appreciated - CT head negative and Brain MRI reviewed without acute intracranial processes - U/S Carotids - no hemodynamically significant stenosis Neck Pain: No Fx on Imaging - Likely Inflammatory Muscle Pain - Toradol 15 mg IV PRN and Lidocaine patch - Flexeril 5 mg TID PRN - Warm/Cold compresses Chronic Asthma/Bronchitis: - Symbicort 2 puffs BID and Ventolin RAJINDER HTN: - Cozaar 50 mg as interchange for Candesartan - Hydralazine 10 mg PRN Splenomegaly: - Kayla-Damian - reference lab DVT Prophylaxis: - Heparin 5000 units SC Q12H Code Status: FULL RESUSCITATION Disposition: - Changed admission status to full admit - Await PT/OT evaluations - Rx for hospital bed - will discuss with case management for assistance with durable medical equipment set-up (Meenu Swanson, SAUL) A 85 y/o male with PMHx of Chronic Asthma/Bronchitis, HTN, T2DM (managed off medications), and Mild BENSON (CPAP non-compliance) who presents to the ED c/o generalized body aches x 1 month and acute neck pain x 1 day. Generalized Weakness with pain in LE without stiffness: Elevated CRP.Infectious Etiology Unlikely, Polymyositis vs PMR? Drug induced myopathy? cont NSS 80 mL/hr Trend CRP and CBC - elevations may be reactive in setting of recent fall HbA1c, hx T2DM off medications, A1c is still pending MRI Lumbar Spine - image and report reviewed - mild central canal narrowing; evidence of degenerative changes; and levoscoliosis PT/OT evaluations start Prednisone 20 mg daily - monitor for improvement may need to start gabapentin? will defer at present time Concern for rheumatological etiology vs neuromuscular, may need consultation check ANCA, Aldolase, Creatinine Phosphokinase, ESR is elevated, will repeat another one in am, will monitor symptoms on prednisone, if improves overnight, then it is highly suspicious for rheumatological disorder Recent Fall: LOC possible Syncope vs Leg Weakness No evidence of rhabdomyolysis appreciated on labs; No focal neurological deficits appreciated CT head negative and Brain MRI reviewed without acute intracranial processes U/S Carotids, no hemodynamically significant stenosis HIM request for Echo report at [facility] Neck Pain: No Fx on Imaging, Likely Inflammatory Muscle Pain cont Toradol 15 mg IV PRN and Lidocaine patch cont Flexeril 5 mg TID PRN cont Warm/Cold compresses Chronic Asthma/Bronchitis: cont Symbicort 2 puffs BID and Ventolin RAJINDER HTN: cont Cozaar 50 mg as interchange for Candesartan cont iv Hydralazine 10 mg PRN Splenomegaly: check Kayla-Damian results DVT Prophylaxis: Heparin 5000 units SC Q12H FULL RESUSCITATION Await PT/OT evaluations, may need rehab Rx for hospital bed (Caden Valdez MD)
[2016-06-15 16:00] VITALS: BP_SYST 170; BP_SYST 177; BP_DIAS 82; BP_DIAS 89; PULSE 70; TEMP 36.3; O2SAT 95
[2016-06-15] MEDS: HydrALAZINE HCL 20 MG/ML VIAL IV. PRN (16:40)
[2016-06-15 19:30] VITALS: BP 163/78; PULSE 74; TEMP 36.3; O2SAT 94
[2016-06-15] MEDS: BUDESONIDE/FORMOTEROL FUMARATE 160/4.5 60 PUFFS/INHALER INH SCH (20:28)
[2016-06-16] VITALS (9 sets, daily range): BP systolic 127–189; BP diastolic 63–98; PULSE 67–74; TEMP 36.3–36.4; O2SAT 94–99
[2016-06-16] MEDS: SODIUM CHLORIDE 0.9% 1000ML 1,000 ML IV SCH ×2 (02:48→14:02)
[2016-06-16] MEDS: ALBUTEROL HFA 8 GM INHALER INH SCH ×3 (06:20→21:14)
[2016-06-16 06:53] LABS: ESTIMATED AVERAGE GLUCOSE 151 mg/dl; HA1C FLAG Normal (Normal)
[2016-06-16 07:28] LABS: BASO % 0.5 %; BASO ABS # 0.06 K/uL (0-0.2); COMPLETE YES; EOS % 10.9 %; HEMATOCRIT 37.5 % (42-52); IG% 0.9 %; LYMPH % 23.7 %; LYMPH ABS # 3.08 K/uL (1.2-3.4); MEAN CELL VOLUME 93.1 fL (80-100); MEAN CORPUSCULAR HEMOGLOBIN 31.8 pg (25-34); MEAN CORPUSCULAR HGB CONC 34.1 g/dl (32-36); MEAN PLATELET VOLUME 9.9 fL (7.4-10.4); MONO % 6.9 %; NEUT % 57.1 %; PLATELET COUNT 307 K/uL (130-400); RED BLOOD COUNT 4.03 M/uL (4.7-6.1); WHITE BLOOD COUNT 12.99 K/uL (4.8-10.8)
[2016-06-16] MEDS: ASPIRIN 81 MG ECTAB PO SCH (07:47)
[2016-06-16] MEDS: PANTOprazole SOD 40 MG TAB PO SCH (07:47)
[2016-06-16] MEDS: TAMSULOSIN HCL 0.4 MG CAP PO SCH (07:48)
[2016-06-16] MEDS: LOSARTAN POTASSIUM 50 MG TAB PO SCH (07:48)
[2016-06-16] MEDS: BUDESONIDE/FORMOTEROL FUMARATE 160/4.5 60 PUFFS/INHALER INH SCH ×2 (07:48→21:15)
[2016-06-16 07:56] LABS: BUN/CREATININE RATIO 14.5 (10-20); CALCIUM 8.4 mg/dl (8.5-10.1); CREATININE 1.1 mg/dl (0.60-1.40); MAGNESIUM 2.3 mg/dl (1.8-2.4); POTASSIUM 3.8 mmol/L (3.5-5.1)
[2016-06-16] MEDS: HEPARIN SOD 5000 UNIT/0.5 ML CARP SQ SCH ×2 (08:29→21:28)
[2016-06-16] MEDS: LIDODERM (LIDOCAINE) PATCH 5% TD SCH (09:21)
[2016-06-16 14:23] LABS: LYME DISEASE AB IGG NEG (NEG); LYME DISEASE AB IGM NEG (NEG)
[2016-06-16] MEDS: HydrALAZINE HCL 20 MG/ML VIAL IV. PRN (14:53)
--- NOTE | 2016-06-16 15:22 | Hospitalist Progress Note ---
Hospitalist Progress Note Date of Service Jun 16, 2016. (Debbie Caraballo ., PA-C) Subjective Pt evaluation today including: conversation w/ patient, conversation w/ family , physical exam, chart review, lab review, review of inpatient medication list PO Intake: Tolerating PO diet Voiding: no voiding problems Patient reports feeling better. He still complains of some weakness in his legs but states that it is much better. He was able to walk around the hallway a few times this morning with PT. He states that he had some lightheadedness towards the end of the walk but otherwise did well. He does complain of an intermittent 9/10 sharp pain located beneath his shoulder blades bilaterally. The pain only comes occasionally and lasts for a few moments before subsiding. He states he has not experienced that pain at all today so far. He reports that he has some chronic productive cough and wheezing secondary to his COPD. The patient denies fevers, chills, sweats, chest pain, palpitations, claudication, shortness of breath, nausea, vomiting, abdominal pain, dysuria, hematuria, urinary retention, paralysis, numbness and tingling. Additional Comments: See HPI for pertinent positives and negatives. All other systems reviewed and negative. (Debbie Caraballo ., PA-C) Objective Vital Signs Date Time Temp Pulse Resp B/P Pulse Ox O2 Delivery O2 Flow Rate FiO2 06/16/16 14:47 67 180/94 06/16/16 10:30 99 Room Air 06/16/16 09:28 74 98 06/16/16 08:00 Room Air 06/16/16 08:00 36.3 71 20 189/98 99 Room Air 06/16/16 07:46 70 175/95 06/16/16 04:01 36.3 67 16 160/77 96 Room Air 06/16/16 00:39 36.4 70 16 127/63 94 Room Air 06/16/16 00:00 94 Room Air 06/15/16 19:30 36.3 74 18 163/78 94 Room Air 06/15/16 16:00 Room Air 06/15/16 16:00 36.3 70 20 170/89 95 Room Air 177/82 (Debbie Caraballo ., THERESA-C) Physical Exam General Appearance: WD/WN, no apparent distress Eyes: normal inspection, PERRL, EOMI ENT: normal ENT inspection, hearing grossly normal, pharynx normal Neck: supple, no JVD, trachea midline Respiratory/Chest: lungs clear, normal breath sounds, no respiratory distress, + decreased breath sounds Cardiovascular: regular rate, rhythm, no gallop, no murmur Abdomen: normal bowel sounds, non tender, soft Extremities: non-tender, normal inspection, no pedal edema Neurologic/Psychiatric: alert, normal mood/affect, oriented x 3, + pertinent finding (5/5 motor strength in lower extremities bilaterally) Skin: normal color, warm/dry, no rash (Debbie Caraballo, SAUL) Laboratory Results Last 24 Hours Test 06/16/16 07:10 06/16/16 12:55 White Blood Count 12.99 K/uL Red Blood Count 4.03 M/uL Hemoglobin 12.8 g/dL Hematocrit 37.5 % Mean Corpuscular Volume 93.1 fL Mean Corpuscular Hemoglobin 31.8 pg Mean Corpuscular Hemoglobin Concent 34.1 g/dl Platelet Count 307 K/uL Mean Platelet Volume 9.9 fL Neutrophils (%) (Auto) 57.1 % Lymphocytes (%) (Auto) 23.7 % Monocytes (%) (Auto) 6.9 % Eosinophils (%) (Auto) 10.9 % Basophils (%) (Auto) 0.5 % Neutrophils # (Auto) 7.42 K/uL Lymphocytes # (Auto) 3.08 K/uL Monocytes # (Auto) 0.89 K/uL Eosinophils # (Auto) 1.42 K/uL Basophils # (Auto) 0.06 K/uL RDW Standard Deviation 55.3 fL RDW Coefficient of Variation 16.6 % Immature Granulocyte % (Auto) 0.9 % Immature Granulocyte # (Auto) 0.12 K/uL Erythrocyte Sedimentation Rate 40 mm/hr Sodium Level 141 mmol/L Potassium Level 3.8 mmol/L Chloride Level 105 mmol/L Carbon Dioxide Level 30 mmol/L Anion Gap 6.0 mmol/L Blood Urea Nitrogen 16 mg/dl Creatinine 1.10 mg/dl Est Creatinine Clear Calc Drug Dose 50.7 ml/min Estimated GFR () 70.6 Estimated GFR (Non- 60.9 BUN/Creatinine Ratio 14.5 Random Glucose 142 mg/dl Calcium Level 8.4 mg/dl Magnesium Level 2.3 mg/dl Lyme Disease IgG Antibody NEG Lyme Disease IgM Antibody NEG (Debbie Caraballo ., PADianaC) Assessment and Plan 85 y/o male with a history of COPD, HTN, DM II, and BENSON (CPAP non-compliance) who presents to the ED with generalized body aches and weakness x 1 month and acute neck pain x 1 day prior to arrival. Generalized weakness with elevated CRP--?rheumatological process -Admit to med/surg -D/C IVF. Pt had adequate PO intake -MRI Lumbar Spine - image and report reviewed - mild central canal narrowing; evidence of degenerative changes; and levoscoliosis -PT/OT evaluations -Prednisone 20 mg daily. Pt reports improvement -Consult rheumatology, appreciate recs -CRP trended upwards: 11.2 on arrival, 13.8 on 06/15. Will repeat CPR tomorrow am -ESR trending downwards: 45 on 06/15, 40 on on 06/16 -ANCA, Aldolase, SATHYA studies pending -Lyme negative -HIM request for Echo report at [facility] Recent Fall: LOC possible Syncope vs Leg Weakness -No evidence of rhabdomyolysis appreciated on labs; No focal neurological deficits appreciated -CT head negative and Brain MRI reviewed without acute intracranial processes -U/S Carotids - no hemodynamically significant stenosis Neck Pain--resolved. No Fx on Imaging - Likely Inflammatory Muscle Pain -Toradol 15 mg IV PRN pain and Lidocaine patch -Flexeril 5 mg TID PRN spasm -Warm/Cold compresses COPD -Continue Symbicort 2 puffs BID and Ventolin RAJINDER HTN -Continue Cozaar 50 mg PO qdas interchange for Candesartan -Hydralazine 10 mg IV q6h PRN Diabetes mellitus type 2--had been diet controlled, no medications -HgbA1c 6.9 on 06/15. Will need to follow up with PCP regarding control -Insulin sliding scale -Check BSGs q ac and qhs Splenomegaly - Kayla-Damian pending DVT Prophylaxis - Heparin 5000 units SC Q12H -VENKATA ayoub and ADIAs Code Status -Level I, FULL RESUSCITATION STATUS Dispo -Changed admission status to full admit -PT recommends continuing PT while inpatient and can return home when medically stable -Rx for hospital bed: script given to case management, family will see what it would cost (Debbie Caraballo ., PA-C) Reviewed: Pt Seen/Exam by Me, HO Notes, Labs, RAD (Arielle Hough MD) History Physician Cook Pressure Supervision Note: I interviewed and examined the patient. Discussed with THERESA Caraballo and agree with findings and plan as documented in the note. Any exceptions or clarifications are listed here: Discussed case with Rheum today after I saw pt and confirms my suspicions of PMR. Agrees with our plana dn made recommendations for prednisone taper and outpatient Rheum f/u. Pt feeling so much better already,s till some neck stiffness. 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 Continue with prednisone and taper down as per Rheum recommendations with Rheum f/u 3-4 weeks. Plan for dc tomorrow to home with home PT/OT [id number] amlodipine 5mg daily Documented By: Arielle Hough (Arielle Hough MD)
[2016-06-16] MEDS ORDERED: GLUCOSE 10 TABS/TUBE PO PRN (15:30)
[2016-06-16] MEDS ORDERED: GLUCOSE 40% GEL 15 GM TUBE PO PRN (15:30)
[2016-06-16] MEDS ORDERED: DEXTROSE 50% 50 ML SYR IV PRN (15:30)
[2016-06-16] MEDS ORDERED: GLUCAGON FOR INJ 1 MG VIAL SQ PRN (15:30)
[2016-06-16] MEDS: INSULIN ASPART 100 UNITS/ML 3 ML PEN SC SCH ×2 (16:30→21:36)
--- NOTE | 2016-06-16 17:41 | Rheumatology Consultation ---
Rheumatology Consultation Date of Consultation: Jun 16, 2016. Requesting Physician: Dr Hough Attending Physician: Dr Hough Reason for Consultation: ? PMR History of Present Illness Mr Yap was hospitalized for an increasing weakness over the last month that even lead to a fall about 1 week ago. he came to [facility] ED and was discharged home but came back yesterday and was admitted for generalized weakness. He was noted to have CK 55, ESR 45. He was placed on steroids with ? of PMR and he is already feeling much better. He reports that prior to being started on prednisone he felt like he had the flu all the time. he ached all over. reports that the mornings were the hardest time for him. He reports that at times it was hard to get out of bed. He tried to continue to go to the [facility] to work out but it increasingly got harder for him because his legs felt weak. He denies any swollen joints. He has underlying COPD and bronchitis. he reports that yrs ago while in [place] he was placed on steroids and he got a little delirious on them. NOt sure how high of a dose they were though. He mentions that prior to admission he developed severe neck pain and thatis one of the reasons he came back. CT of the neck shows multilevel DDD. He has know cervical disc disease but it got acutely worse. he mentions that he is still having some neck pain that radiates from the base of the neck up to his skull. he has limited cervical rotation rom R>L. he mentions at times when the headaches were severe he did have some change in vision - maybe some blurriness but no loss of vision. His headaches were not temporal, denies any jaw claudication, scalp tenderness, tongue or ear pain. when I saw him today he was sitting in chair eating dinner and feeling better. If he takes the neck pain out of it he feels back to normal. repeat ESR was 40. there is no family history of autoimmune diseases. Past Medical/Surgical History Medical History: arthritis (neck), COPD, diabetes, other (sleep apnea on CPAP) Surgical History: other (no asked) Family History no family history of autoimmune diseases Social History Smoking Status: Former Smoker History of Alcohol Use: Yes ( BEER AND SHOT EVERY NIGHT ) Drug Use: none Marital Status: Occupation Status: retired Review of Systems Constitutional: + fatigue, + weakness, No fever Eyes: + see HPI ENT: + see HPI Respiratory: No cough, No shortness of breath Musculoskeletal: + see HPI All Other Systems: Reviewed and Negative Allergies Coded Allergies: Penicillins (Verified Allergy, Unknown, 06/14/16) Medications Current Inpatient Medications Medications (Trade) Dose Ordered Sig/Christel Route Start Time Stop Time Status Last Admin Dose Admin Acetaminophen (Tylenol Tab) 650 mg Q4H PRN PO 06/14/16 12:30 07/14/16 12:29 Al Hydrox/Mg Hydrox/Simethicone (Maalox Max Susp) 15 ml Q4H PRN PO 06/14/16 12:30 07/14/16 12:29 Magnesium Hydroxide (Milk Of Magnesia Susp) 30 ml Q6H PRN PO 06/14/16 12:30 07/14/16 12:29 Polyethylene (Miralax Powder Packet) 17 gm DAILY PRN PO 06/14/16 12:30 07/14/16 12:29 Ondansetron HCl (Zofran Inj) 4 mg Q6H PRN IV 06/14/16 12:30 07/14/16 12:29 Albuterol (Ventolin Hfa Inhaler) 2 puffs Q6H INH 06/14/16 18:00 07/14/16 17:59 06/16/16 12:07 2 PUFFS Aspirin (Ecotrin Tab) 81 mg DAILY PO 06/15/16 09:00 07/15/16 08:59 06/16/16 07:47 81 MG Tamsulosin HCl (Flomax Cap) 0.4 mg DAILY PO 06/15/16 09:00 07/15/16 08:59 06/16/16 07:48 0.4 MG Pantoprazole Sodium (Protonix Tab) 40 mg QAM PO 06/15/16 09:00 07/15/16 08:59 06/16/16 07:47 40 MG Hydralazine HCl (HydrALAZINE INJ) 10 mg Q6 PRN IV. 06/14/16 13:15 07/14/16 13:14 06/16/16 14:53 10 MG Losartan Potassium (coZAAR TAB) 50 mg QAM PO 06/14/16 16:00 07/14/16 15:59 06/16/16 07:48 50 MG Miscellaneous (Iv Fluids Completed) 1 ea PRN PRN N/A 06/14/16 13:45 06/14/17 13:44 Lidocaine (Lidoderm Patch 5%) 1 patch QAM TD 06/15/16 09:00 07/15/16 08:59 06/16/16 09:21 1 PATCH Miscellaneous (Remove Lidoderm Patch) 1 ea DAILY@21 N/A 06/14/16 21:00 07/14/16 20:59 06/15/16 20:28 1 EA Heparin Sodium (Porcine) (Heparin Sq 5000 Unit/0.5ml) 5,000 unit Q12 SQ 06/14/16 21:00 07/14/16 20:59 06/16/16 08:29 5,000 UNIT Albuterol/ Ipratropium (Duoneb) 3 ml Q2H PRN INH 06/15/16 08:45 07/15/16 08:44 Ketorolac Tromethamine (Toradol Inj) 15 mg Q6H PRN IV. 06/15/16 09:00 06/20/16 08:59 Cyclobenzaprine HCl (Flexeril Tab) 5 mg TID PRN PO 06/15/16 09:15 07/15/16 09:14 Budesonide/ Formoterol Fumarate (Symbicort 160/ 4.5 Inh) 2 puffs BID INH 06/15/16 21:00 07/15/16 20:59 06/16/16 07:48 2 PUFFS Prednisone (PredniSONE TAB) 20 mg DAILY PO 06/16/16 09:00 07/16/16 08:59 06/16/16 07:48 20 MG Insulin Aspart (novoLOG ASPART) SLIDING SCALE If C... ACHS SC 06/16/16 16:30 07/16/16 16:29 Glucose (Glucose 40% Gel) 15-30 GRAMS 15 GRAMS... UD PRN PO 06/16/16 15:30 07/16/16 15:29 Glucose (Glucose Chew Tab) 4-8 Tablets 4 Tabl... UD PRN PO 06/16/16 15:30 07/16/16 15:29 Dextrose (Dextrose 50% 50ML Syringe) 25-50ML OF 50% DW IV FOR... UD PRN IV 06/16/16 15:30 3/29/17 15:29 Glucagon (Glucagon Inj) 1 mg UD PRN SQ 06/16/16 15:30 07/16/16 15:29 Physical Exam Date Time Temp Pulse Resp B/P Pulse Ox O2 Delivery O2 Flow Rate FiO2 06/16/16 15:49 36.3 73 18 161/81 95 Room Air 06/16/16 14:47 67 180/94 06/16/16 10:30 99 Room Air 06/16/16 09:28 74 98 06/16/16 08:00 Room Air 06/16/16 08:00 36.3 71 20 189/98 99 Room Air 06/16/16 07:46 70 175/95 06/16/16 04:01 36.3 67 16 160/77 96 Room Air 06/16/16 00:39 36.4 70 16 127/63 94 Room Air 06/16/16 00:00 94 Room Air 06/15/16 19:30 36.3 74 18 163/78 94 Room Air General Appearance: WD/WN, no apparent distress Eyes: bilateral eyes EOMI, bilateral eyes normal inspection ENT: normal ENT inspection, hearing grossly normal, pharynx normal Respiratory: chest non-tender, no respiratory distress, no accessory muscle use , + pertinent finding (sopme rhonchi noted, no crackles) Cardiovascular: regular rate, rhythm, no edema, no gallop, no murmur Abdomen: normal bowel sounds, non tender, soft Musculoskeletal: normal strength on exam very limited cervical rotational ROM especially looking right with some pain on exam no synovitis of the small joints of the hands Skin: normal color, no rash Lymphatic: no adenopathy Laboratory Results Last 24 Hours Test 06/16/16 07:10 06/16/16 12:55 06/16/16 16:28 White Blood Count 12.99 K/uL Red Blood Count 4.03 M/uL Hemoglobin 12.8 g/dL Hematocrit 37.5 % Mean Corpuscular Volume 93.1 fL Mean Corpuscular Hemoglobin 31.8 pg Mean Corpuscular Hemoglobin Concent 34.1 g/dl Platelet Count 307 K/uL Mean Platelet Volume 9.9 fL Neutrophils (%) (Auto) 57.1 % Lymphocytes (%) (Auto) 23.7 % Monocytes (%) (Auto) 6.9 % Eosinophils (%) (Auto) 10.9 % Basophils (%) (Auto) 0.5 % Neutrophils # (Auto) 7.42 K/uL Lymphocytes # (Auto) 3.08 K/uL Monocytes # (Auto) 0.89 K/uL Eosinophils # (Auto) 1.42 K/uL Basophils # (Auto) 0.06 K/uL RDW Standard Deviation 55.3 fL RDW Coefficient of Variation 16.6 % Immature Granulocyte % (Auto) 0.9 % Immature Granulocyte # (Auto) 0.12 K/uL Erythrocyte Sedimentation Rate 40 mm/hr Sodium Level 141 mmol/L Potassium Level 3.8 mmol/L Chloride Level 105 mmol/L Carbon Dioxide Level 30 mmol/L Anion Gap 6.0 mmol/L Blood Urea Nitrogen 16 mg/dl Creatinine 1.10 mg/dl Est Creatinine Clear Calc Drug Dose 50.7 ml/min Estimated GFR () 70.6 Estimated GFR (Non- 60.9 BUN/Creatinine Ratio 14.5 Random Glucose 142 mg/dl Calcium Level 8.4 mg/dl Magnesium Level 2.3 mg/dl Lyme Disease IgG Antibody NEG Lyme Disease IgM Antibody NEG Bedside Glucose 164 mg/dl Assessment & Plan Assessment & Plan: Assessment: Lewis is an 85 y/o male that presented with generalized weakness and elevated ESR - given his tory and exam, response to steroids likely has PMR at this point. I am not concerned for GCA at this point in time - had good temporal artery pulses, history not really consistent with GCA. this was discussed with him and Dr Hough. I recommend pred taper that is outlined below and I will arrange outpatient rheumatology follow up. His neck pain is from Cervical DDD and hopefully will continue to improve on steroids. would closely monitor for steroid psychosis given reported history but so far tolerating dosing and usually associated with doses over 30mg daily. Plan: 1. pred taper 20mg x 1 week, 17.5mg daily for 1 week, 15mg daily for 1 week, 12.5mg daily for 1 week, 10mg daily 2. case discussed with Dr Hough 3. I will arrange rheumatology outpatient appt in 3-4 weeks 4. Thanks for the consult and involving me in this patient's care
[2016-06-17 00:08] VITALS: BP 168/92; PULSE 72; TEMP 36.3; O2SAT 95
[2016-06-17] MEDS: ALBUTEROL HFA 8 GM INHALER INH SCH ×3 (05:15→11:56)
[2016-06-17] MEDS ORDERED: AMLODIPINE BESYLATE 5 MG TAB PO SCH (06:00)
[2016-06-17 07:08] VITALS: BP 184/83; PULSE 72; TEMP 36.6; O2SAT 95
[2016-06-17 07:31] LABS: BASO % 0.5 %; BASO ABS # 0.08 K/uL (0-0.2); COMPLETE YES; EOS % 15.6 %; HEMATOCRIT 38.9 % (42-52); IG% 0.7 %; LYMPH % 23.8 %; LYMPH ABS # 3.85 K/uL (1.2-3.4); MEAN CELL VOLUME 94.6 fL (80-100); MEAN CORPUSCULAR HEMOGLOBIN 31.4 pg (25-34); MEAN CORPUSCULAR HGB CONC 33.2 g/dl (32-36); MEAN PLATELET VOLUME 10.4 fL (7.4-10.4); MONO % 5.8 %; NEUT % 53.6 %; PLATELET COUNT 357 K/uL (130-400); RED BLOOD COUNT 4.11 M/uL (4.7-6.1)
[2016-06-17] MEDS: BUDESONIDE/FORMOTEROL FUMARATE 160/4.5 60 PUFFS/INHALER INH SCH (07:58)
[2016-06-17] MEDS: ASPIRIN 81 MG ECTAB PO SCH (07:58)
[2016-06-17] MEDS: TAMSULOSIN HCL 0.4 MG CAP PO SCH (07:58)
[2016-06-17] MEDS: PANTOprazole SOD 40 MG TAB PO SCH (07:59)
[2016-06-17] MEDS: LIDODERM (LIDOCAINE) PATCH 5% TD SCH (08:00)
[2016-06-17 08:02] VITALS: BP 162/78; PULSE 71
[2016-06-17] MEDS: LOSARTAN POTASSIUM 50 MG TAB PO SCH (08:03)
[2016-06-17] MEDS: INSULIN ASPART 100 UNITS/ML 3 ML PEN SC SCH ×2 (08:05→11:58)
[2016-06-17 08:12] LABS: BUN/CREATININE RATIO 14.9 (10-20); C-REACTIVE PROTEIN 4.48 mg/dl (0-0.29); CALCIUM 8.6 mg/dl (8.5-10.1); CREATININE 1.1 mg/dl (0.60-1.40); MAGNESIUM 2.2 mg/dl (1.8-2.4); POTASSIUM 3.7 mmol/L (3.5-5.1)
[2016-06-17] MEDS: HEPARIN SOD 5000 UNIT/0.5 ML CARP SQ SCH (08:41)
[2016-06-17] MEDS ORDERED: FLX5 PO (09:02)
[2016-06-17] MEDS ORDERED: PRED10TA PO (09:02)
[2016-06-17] MEDS ORDERED: NRV5 PO (09:02)
[2016-06-17] MEDS ORDERED: SYMIN INH (09:02)
[2016-06-17] MEDS ORDERED: PRED20TA PO (09:02)
[2016-06-17] MEDS ORDERED: PRED-301 PO (09:02)
--- NOTE | 2016-06-17 09:17 | Discharge Instructions ---
Discharge Instructions Admission Reason for Admission: Generalized Weakness,Syncope (Debbie Caraballo PA-C) Discharge Discharge Diagnosis / Problem: Polymyalgia rheumatica (Debbie Caraballo PA-C) Discharge Goals Goal(s): Decrease discomfort, Improve function, Diagnostic testing, Therapeutic intervention (Debbie Caraballo PA-C) Activity Recommendations Activity Limitations: resume your previous activity (as tolerated and per physical therapy recommendations) . (Debbie Caraballo PA-C) Instructions / Follow-Up Instructions / Follow-Up You were admitted to the hospital with generalized weakness and aches for the last month. Based on your symptoms, you were started on a trial of Prednisone, an oral steroid. Your symptoms greatly improved on this medication. You were also seen by a donor specialist, Dr. Duran. You have been diagnosed with what is most likely polymyalgia rheumatica, which is an inflammatory disorder that can cause stiffness and aches. Dr. Duran recommended a slow taper of the Prednisone medication, which has been printed for you. You will also follow up with him at his outpatient office in 3-4 weeks, which he will set up for you. Medications: *Please take the Prednisone tablets as follows: -Take 20 mg (one 20 mg tablet) by mouth every day for 4 days, then -Take 17.5 mg (3.5 of the 5 mg tablets) by mouth every day for 7 days, then -Take 15 mg (3 of the 5 mg tablets) by mouth every day for 7 days, then -Take 12.5 mg (2.5 of the 5 mg tablets) by mouth every day for 7 days, then -Take 10 mg (one 10 mg tablet) by mouth every day for 7 days, then stop. *You have also been started on a new blood pressure medication to take in addition to your previous blood pressure medication. Please take amlodipine 5 mg by mouth daily. You will need to follow up with your primary care provider regarding management of your blood pressure. *Please continue taking your other home medications as before. Follow up: *Dr. Duran will schedule a follow up rheumatology appointment for you in the next 3-4 weeks. *Please follow up with your primary care provider in 1 week regarding your hospital stay and managing your blood pressure with the new medication. Please seek medical attention if you experience worsening weakness or aches, fevers, chills, chest pain, shortness of breath, nausea, vomiting, numbness or tingling. (Debbie Caraballo PA-C) Current Hospital Diet Patient's current hospital diet: AHA Diet (Heart Healthy), Low Sodium Diet (2gm Na) (Debbie Caraballo PA-C) Discharge Diet Recommended Diet: AHA Diet (Heart Healthy), Low Sodium Diet (2gm Na) (Debbie Caraballo PA-C) Pending Studies Studies pending at discharge: yes List of pending studies: SATHYA screen, ANCA, Kayla Damian virus studies (Debbie Caraballo PA-C) Laboratory Results Hemoglobin A1c Test 06/15/16 06:18 Range/Units Estimated Average Glucose 151 mg/dl Hemoglobin A1c 6.9 H 4.5-5.6 % (Debbie Caraballo PA-C) Medical Emergencies . Who to Call and When: Medical Emergencies: If at any time you feel your situation is an emergency, please call 911 immediately. . (Debbie Caraballo PA-C) Non-Emergent Contact Non-Emergency issues call your: Primary Care Provider Call Non-Emergent contact if: you have a fever, your pain is worsening, your pain is concerning you, you have any medication questions . (Debbie Caraballo PA-C) Past History Medical & Surgical History: (1) Polymyalgia rheumatica (2) Generalized weakness (3) HTN (hypertension) (Debbie Caraballo PA-C) . "Provider Documentation" section prepared by Debbie Caraballo. (Debbie Caraballo PA-C) VTE Core Measure Inpt VTE Proph given/why not?: Unfractionated heparin SQ, T.E.D. Stockings, SCD 's (Debbie Caraballo PA-C)
[2016-06-17 11:15] VITALS: BP 162/78; PULSE 71; TEMP 36.6; O2SAT 95
[2016-06-17 11:55] VITALS: BP 171/82
--- NOTE | 2016-06-17 12:11 | Discharge Summary ---
Discharge Summary Date of Service Jun 17, 2016. (Debbie Caraballo PA-C) Discharge Summary Admission Date: Jun 15, 2016 at 12:51 Discharge Date: Jun 17, 2016 Discharge Disposition: Home with services Principal Diagnosis: PMR Immunizations: Have You Had Influenza Vaccine: Yes History of Tetanus Vaccine?: Yes History of Pneumococcal: Yes History of Hepatitis B Vaccine: No (Debbie Caraballo PA-C) Medication Reconciliation New Medications: Prednisone (Prednisone) 20 Mg Tab 1 TAB PO DAILY for 4 Days, #4 TAB Take 1 (20 mg) tablet by mouth every day for 4 days. Prednisone Tab (Prednisone) 10 Mg Tab 10 MG PO DAILY for 7 Days, #7 TAB Take 1 tablet by mouth daily for 7 days. Prednisone (Prednisone) 5 Mg Tab 5 MG PO UD for 21 Days, #63 TAB 3.5 tablets daily for 1 week. 3 tablets daily for 1 week. 2.5 tablets daily for 1 week. Amlodipine Besylate (Amlodipine Besylate) 5 Mg Tab 5 MG PO QAM for 30 Days, #30 TAB Take 1 tablet by mouth every morning. Continued Medications: Albuterol Hfa (Ventolin Hfa) 200 Puffs/44924 Mcg Aers 2-4 PUFFS INH Q6H, #1 INHALER Aspirin (Aspirin Ec) 81 Mg Tab 81 MG PO DAILY Candesartan Cilexetil (Atacand) 32 Mg Tab 1 TAB PO DAILY for 30 Days, #30 TAB 5 Refills Multivitamin (Multivitamin) Tab 1 TAB PO DAILY Tamsulosin Hcl (Flomax) 0.4 Mg Cap 1 CAP PO DAILY for 30 Days, #30 CAP 5 Refills Undecylenic Acid (Bulk) (Undecylenic Acid) 1 Liq Liq Referrals At Discharge Follow up Referrals: Family Practice Referral - Within 2 Weeks with James Sinha M.D. Shingles Roofer Helper Referral - Within a Month with Chaka Duran M.D. Discharge Exam Patient reports feeling well. He states that the weakness has continued to improve. He does still complain of neck stiffness but denies any pain. He is eating and sleeping well. He denies any hallucinations or psychosis from the steroids at this current dose. The patient denies fevers, chills, sweats, chest pain, palpitations, claudication, cough, wheezing, shortness of breath, nausea, vomiting, abdominal pain, dysuria, hematuria, urinary retention, paralysis, weakness, numbness and tingling. Review of Systems: Constitutional: No chills, No fever, No sweats Eyes: No diplopia, No eye pain, No worsening of vision ENT: No hearing loss, No sore throat, No trouble swallowing Respiratory: + cough (chronic), + sputum (thick white, chronic), + wheezing (occasional, chronic), No shortness of breath Cardiovascular: No chest pain, No claudication, No palpitations Abdomen: No nausea, No pain, No vomiting Musculoskeletal: + problem reported (neck stiffness), No calf pain, No joint pain, No muscle pain Genitourinary - Male: No dysuria, No hematuria, No urinary retention Neurologic: No numbness/tingling, No paralysis, No weakness Integumentary: No color change, No itch, No rash Physical Exam: General Appearance: WD/WN, no apparent distress Eyes: normal inspection, PERRL, EOMI ENT: normal ENT inspection, hearing grossly normal, pharynx normal Neck: supple, no JVD, trachea midline, + pertinent finding (limited ROM) Respiratory/Chest: lungs clear, normal breath sounds, no respiratory distress Cardiovascular: regular rate, rhythm, no gallop, no murmur Abdomen / GI: normal bowel sounds, non tender, soft Extremities: normal inspection, no calf tenderness, no pedal edema Neurologic/Psychiatric: alert, normal mood/affect, oriented x 3, + pertinent finding (4-5/5 strength in lower extremities bilaterally) Skin: normal color, warm/dry, no rash (Debbie Caraballo ., PA-C) Hospital Course 85 y/o male with a history of COPD, HTN, DM II, and BENSON (CPAP non-compliance) who presents to the ED with generalized body aches and weakness x 1 month and acute neck pain x 1 day prior to arrival. Generalized weakness with elevated CRP--greatly improved with Prednisone, likely rheumatological process -Admit to med/surg -D/C IVF. Pt had adequate PO intake -MRI Lumbar Spine - image and report reviewed - mild central canal narrowing; evidence of degenerative changes; and levoscoliosis -PT/OT evaluations. PT recommend continuing PT services at home as outpatient. Case management aware. -Prednisone 20 mg daily. Pt reports improvement -Consult rheumatology, appreciate recs: consistent with PMR, recommend Prednisone taper as follows: 20 mg daily x 1 week, 17.5 mg x 1 week, 15 mg x 1 week, 12.5 mg x 1 week, 10 mg x 1 week. F/u in 3-4 weeks, [address] Dr. Duran will set up. -CRP peaked at 13.8: 11.2 on arrival, 13.8 on 06/15, 4.48 on 06/17 -ESR trending downwards: 45 on 06/15, 40 on on 06/16 -ANCA, Aldolase, SATHYA studies pending -Lyme negative -HIM request for Echo report at [facility] Recent Fall: LOC possible Syncope vs Leg Weakness -No evidence of rhabdomyolysis appreciated on labs; No focal neurological deficits appreciated -CT head negative and Brain MRI reviewed without acute intracranial processes -U/S Carotids - no hemodynamically significant stenosis Neck pain/stiffness--stable. Denies pain, stiffness the same. Likely secondary to PMR -Prednisone taper as above COPD -Continue Symbicort 2 puffs BID and Ventolin RAJINDER HTN -Continue Cozaar 50 mg PO qdas interchange for Candesartan -Hydralazine 10 mg IV q6h PRN -Will add amlodipine 5 mg PO qd in addition to home cardesartan. F/u with PCP regarding BP control Diabetes mellitus type 2--had been diet controlled, no medications -HgbA1c 6.9 on 06/15. Will need to follow up with PCP regarding control -Insulin sliding scale -Check BSGs q ac and qhs Splenomegaly - Kayla-Damian pending DVT Prophylaxis - Heparin 5000 units SC Q12H -VENKATA ayoub and SCDs Code Status -Level I, FULL RESUSCITATION STATUS Dispo -Changed admission status to full admit -PT recommends continuing PT while inpatient and can return home when medically stable -Rx for hospital bed: script given to case management, family will see what it would cost -Medically stable for discharge, case management working on home health services. Total Time Spent: Greater than 30 minutes This includes examination of the patient, discharge planning, medication reconciliation, and communication with other providers. (Debbie Caraballo ., PADianaC) Discharge Instructions Please refer to the electronic Patient Visit Report (Discharge Instructions) for additional information. (Debbie Caraballo ., THERESA-C) Additional Copies To James Sinha M.D. Reviewed: Pt Seen/Exam by Me, HO Notes (Arielle Hough MD) History Physician Injection Molding Technician Supervision Note: I interviewed and examined the patient. Discussed with THERESA Caraballo and agree with findings and plan as documented in the note. Any exceptions or clarifications are listed here: Pt continues to feel better already. Still with right sided neck pain and torticollis since fall. Vitals reviewed, hypertensive at 160-170 systolic but just received first dose amlodipine today NAD Neck decreased ROM in all directions but more pronounced with turning to the right, no TTP over posterior neck, no ttp over temporal arteries and palpable pulsations there RRR no mgr Lungs CTAB, unlabored Abd soft NT ND +BS Ext strength is 5/5 except 4/5 right triceps, 4/5 in hip flexors and knee extension bilat Skin no rashes 85 yo male with PMR-new onset. Continue with prednisone and taper down as per Rheum recommendations with Rheum f/u 3-4 weeks. Also recommended to take OTC Zantac if starts having GI symptoms while on fci prednisone. Stretching for neck torticollis. Plan for dc to home with home PT/OT HTN-uncontrolled but not severe-started amlodipine 5mg daily, return to home candesartan on discharge, f/u closely with PCP (Arielle Hough MD)
[2016-06-17] MEDS ORDERED: TAMS0.4C38 PO (12:27)
[2016-06-17] MEDS ORDERED: LDDP5 TD (12:27)
[2016-06-18 12:07] LABS: EPSTEIN BARR VIR CAPSID IGG 1.37 INDEX
== END 2016-06-17 13:15 | disposition home health service (06) | DRG 546 ==
LOC: ENRESERVTM → ENRESERVDT → C.EDB 08:30 → C.MS2W 12:38 → OBSVTOIN 06-15 12:51
PROVIDERS: ADMIT Family Medicine; ATTEND Hospitalist
DX: M35.3 Polymyalgia rheumatica (principal); R29.6 Repeated falls; M50.30 Other cervical disc degeneration, unspecified cervical region; J44.9 Chronic obstructive pulmonary disease, unspecified; I10 Essential (primary) hypertension; E11.9 Type 2 diabetes mellitus without complications; R16.1 Splenomegaly, not elsewhere classified; G47.33 Obstructive sleep apnea (adult) (pediatric); Z91.19 Patient's noncompliance with other medical treatment and regimen; Z87.891 Personal history of nicotine dependence; Z79.82 Long term (current) use of aspirin; Z88.0 Allergy status to penicillin; Z83.3 Family history of diabetes mellitus; Z82.49 Family history of ischemic heart disease and other diseases of the circulatory system; Z83.6 Family history of other diseases of the respiratory system; R21 Rash and other nonspecific skin eruption; M62.81 Muscle weakness (generalized); M79.1 Myalgia; S06.9X9A Unspecified intracranial injury with loss of consciousness of unspecified duration, initial encounter; W06.XXXA Fall from bed, initial encounter

== ENCOUNTER → 2016-07-22 | Outpatient (CLI) | payer BC ==
[~2016-07-22] MED LIST changes: -ASPEC325 PO; +ASPI81TA28 PO; +CAND32TA2 PO; -CHROMAX PLUS PO; -GARLTAB3 PO; +LDDP5 TD; +NRV5 PO; -OXYC-57 PO; -RED YEAST RICE PO; +TAMS0.4C38 PO; +VNTHFA/IN INH; +[UNRECOGNIZED DRUG - CODE]; -[UNRECOGNIZED DRUG - CODE] PO
== END | disposition home or self-care (01) ==
LOC: C.MAMM 15:23
PROVIDERS: ATTEND Internal Medicine
DX: M35.3 Polymyalgia rheumatica (principal); Z79.52 Long term (current) use of systemic steroids

== ENCOUNTER → 2016-10-24 | Outpatient (CLI) | payer BC ==
--- NOTE | 2016-10-24 15:49 | DIAGNOSTIC IMAGING REPORT ---
CHEST 2 VIEWS ROUTINE HISTORY:86 yearsMaleCOUGH COMPARISON: Portable chest radiograph 06/14/2016. TECHNIQUE: Frontal and lateral views of the chest. FINDINGS: Cardiomediastinal and hilar silhouettes are within normal limits. There is atherosclerosis of the aorta. No pneumothorax, pleural effusion or focal airspace consolidation. No overt pulmonary edema. Right shoulder hemiarthroplasty is noted. Bones are grossly intact. Multilevel endplate spurring seen to the spine. There are surgical clips in the upper abdomen. IMPRESSION: No acute cardiopulmonary process. The above report was generated using voice recognition software. It may contain grammatical, syntax or spelling errors. Electronically signed by: Vance Molina 10/24/2016 3:48 PM Dictated Date/Time: 10/24/2016 3:47 PM
== END | disposition home or self-care (01) ==
LOC: C.RAD1850 15:22
PROVIDERS: ATTEND Physician Assistant Medical
DX: R05 Cough (principal); I70.0 Atherosclerosis of aorta

== ENCOUNTER → 2016-11-10 | Outpatient (CLI) | payer BC | END | disposition home or self-care (01) | LOC: C.LAB1850 11:41 | PROVIDERS: ATTEND Internal Medicine Pulmonary Disease | DX: J44.9 Chronic obstructive pulmonary disease, unspecified (principal); R05 Cough ==

== ENCOUNTER 2020-04-21 15:20 | Observation (INO) ==
[2020-04-21] MEDS ORDERED: HYDROCORTISONE SOD SUCCINATE 100 MG/2 ML VIAL IV STA (15:46)
[2020-04-21] MEDS ORDERED: MULTI-VITAMIN INFUSION 10 ML, THIAMINE HCL 100 MG, FOLIC ACID 1 MG in SODIUM CHLORIDE 0... IV ONE (15:47)
--- NOTE | 2020-04-21 15:48 | Emergency Department Note ---
History of Present Illness General Chief complaint: Altered Mental Status Stated complaint: DISORIENTED, WEAKNESS Time Seen by Provider: 04/21/20 15:31 Source: patient, family (daughter), RN notes reviewed and old records reviewed Mode of arrival: ambulatory Limitations: altered mental status History of Present Illness Provider complaint: cannot find words Onset (ago): hour(s) 3 Location: head Associated symptoms: + confusion This is an 89-year-old male who was brought to his daughter's house at approximately 1230 for lunch at 1:00. Patient daughter notes that the patient was normal at 1230 however upon arriving at her house at 1300 she realized he could not find the correct word he was looking for. She reports a general decline in his health over the past 3 days. She also reports at lunch that the patient had an alcoholic beverage. Upon arrival to the emergency department the patient is searching for words and appears to be babbling. He does follow commands correctly. He does have a history of polymyalgia rheumatica as well as alcohol abuse. Home Medications Medication Instructions Recorded Confirmed Type metformin 500 mg PO QDD 01/20/18 04/21/20 History albuterol sulfate [ProAir HFA] 2 puff INHALATION Q4H PRN 01/21/18 04/21/20 History tamsulosin 0.4 mg capsule 0.4 mg PO QAM cap 04/04/19 04/21/20 History irbesartan 75 mg PO QAM 12/02/19 04/21/20 History aspirin [Aspirin Low Dose] 81 mg PO QAM 03/01/20 04/21/20 History zafirlukast 20 mg PO QAM 03/01/20 04/21/20 History budesonide-formoterol HFA 160 2 puff INHALATION BID #1 inhaler 03/23/20 04/21/20 Rx mcg-4.5 mcg/actuation aerosol inhaler psyllium husk 0.52 g PO BID 04/21/20 04/21/20 History Allergies Allergy/AdvReac Type Severity Reaction Status Date / Time Penicillins Allergy Unknown Unknown in Verified 04/21/20 17:26 childhood Past Med/Surg History Medical History (Updated 04/21/20 @ 21:07 by Eusebio Moeller MD) Acquired deviated nasal septum Asthma inhaler daily and prn/nebulizer prn BPH (benign prostatic hyperplasia) Cystitis Diabetes mellitus, type 2 metformin daily Hearing deficit Hypertension 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 Sleep apnea CPAP Stomach pain Urge incontinence of urine Surgical History History of hemiarthroplasty of shoulder History of laparoscopic cholecystectomy Family History Other Asthma Coronary heart disease No family history of adverse response to anesthesia Social History Smoking Status: Former smoker Second Hand Exposure: Yes ( smokes); Hx Alcohol Use: Yes Alcohol type: beer and hard liquor Hx Substance Use: No Preferred Language: Peruvian Communication Ability: Effective Visual Impairment: No Limitations Avionics Safety Inspector Required: No Beliefs That Will Affect Care: None marital status: Current Living Situation: Spouse Current Living Situation Comment: resides at home with Feels Safe at Home: Yes Assistive Devices: Glasses Review of Systems Unobtainable due to cognitive status Physical Exam Vital Signs Vital Signs - 24 hr 04/21/20 15:21 04/21/20 15:38 04/21/20 15:39 Temperature 36.5 C Temperature Source Oral Pulse Rate 66 65 65 Pulse Rate [Right Finger] Pulse Rate from SpO2 Sensor 65 66 Respiratory Rate 18 19 14 Respiratory Effort / Characteristics Respiratory Depth Blood Pressure 120/57 L 130/60 Blood Pressure [Right Arm] Blood Pressure Mean 78 77 Blood Pressure Mean [Right Arm] Pulse Oximetry 97 98 96 Oxygen Delivery Method Room Air Sepsis Recent Fever Within 48 Hours No Sepsis New/Unexplained Change in Mental Status No Sepsis Action Taken by Nursing No Action Required 04/21/20 15:40 04/21/20 15:59 04/21/20 16:01 Temperature Temperature Source Pulse Rate 65 69 68 Pulse Rate [Right Finger] Pulse Rate from SpO2 Sensor 65 Respiratory Rate 16 16 15 Respiratory Effort / Characteristics Respiratory Depth Blood Pressure 139/71 Blood Pressure [Right Arm] Blood Pressure Mean 89 Blood Pressure Mean [Right Arm] Pulse Oximetry 96 Oxygen Delivery Method Sepsis Recent Fever Within 48 Hours Sepsis New/Unexplained Change in Mental Status Sepsis Action Taken by Nursing 04/21/20 16:10 04/21/20 16:11 04/21/20 16:15 Temperature Temperature Source Pulse Rate 73 72 67 Pulse Rate [Right Finger] Pulse Rate from SpO2 Sensor 67 Respiratory Rate 24 21 16 Respiratory Effort / Characteristics Respiratory Depth Blood Pressure 132/60 143/54 H Blood Pressure [Right Arm] Blood Pressure Mean 72 74 Blood Pressure Mean [Right Arm] Pulse Oximetry 98 Oxygen Delivery Method Sepsis Recent Fever Within 48 Hours Sepsis New/Unexplained Change in Mental Status Sepsis Action Taken by Nursing 04/21/20 16:17 04/21/20 16:20 04/21/20 16:21 Temperature Temperature Source Pulse Rate 67 65 Pulse Rate [Right Finger] 66 Pulse Rate from SpO2 Sensor 67 64 Respiratory Rate 16 23 13 Respiratory Effort / Characteristics Respiratory Depth Blood Pressure 150/62 H Blood Pressure [Right Arm] 143/54 H Blood Pressure Mean 81 Blood Pressure Mean [Right Arm] 83 Pulse Oximetry 97 98 99 Oxygen Delivery Method Room Air Sepsis Recent Fever Within 48 Hours Sepsis New/Unexplained Change in Mental Status Sepsis Action Taken by Nursing 04/21/20 16:30 04/21/20 16:31 04/21/20 16:40 Temperature Temperature Source Pulse Rate 70 67 67 Pulse Rate [Right Finger] Pulse Rate from SpO2 Sensor 68 67 Respiratory Rate 23 20 18 Respiratory Effort / Characteristics Respiratory Depth Blood Pressure 162/66 H 158/60 H Blood Pressure [Right Arm] Blood Pressure Mean 76 83 Blood Pressure Mean [Right Arm] Pulse Oximetry 97 99 Oxygen Delivery Method Sepsis Recent Fever Within 48 Hours Sepsis New/Unexplained Change in Mental Status Sepsis Action Taken by Nursing 04/21/20 16:41 04/21/20 16:44 04/21/20 16:50 Temperature Temperature Source Pulse Rate 65 69 Pulse Rate [Right Finger] 68 Pulse Rate from SpO2 Sensor 70 Respiratory Rate 20 20 15 Respiratory Effort / Characteristics Non-Labored Respiratory Depth Normal Blood Pressure 164/71 H Blood Pressure [Right Arm] 158/60 H Blood Pressure Mean 130 Blood Pressure Mean [Right Arm] 92 Pulse Oximetry 98 98 Oxygen Delivery Method Room Air Sepsis Recent Fever Within 48 Hours Sepsis New/Unexplained Change in Mental Status Sepsis Action Taken by Nursing 04/21/20 16:51 Temperature Temperature Source Pulse Rate 69 Pulse Rate [Right Finger] Pulse Rate from SpO2 Sensor 68 Respiratory Rate 18 Respiratory Effort / Characteristics Respiratory Depth Blood Pressure Blood Pressure [Right Arm] Blood Pressure Mean Blood Pressure Mean [Right Arm] Pulse Oximetry 98 Oxygen Delivery Method Sepsis Recent Fever Within 48 Hours Sepsis New/Unexplained Change in Mental Status Sepsis Action Taken by Nursing VITAL SIGNS - Vital signs and nursing notes were reviewed. GENERAL - 89-year-old male appearing stated age who is in no acute distress. word salad present SKIN - Without rashes. HEAD - NC/AT. EYES - PERRL with EOMI bilaterally. Sclera anicteric. Palpebral conjunctiva p ink and moist with no injection noted. EARS - No deformities of external structures noted on gross examination bilaterally. No pain elicited with palpation of the tragus bilaterally. External auditory canals without discharge or otorrhea. Tympanic membranes pearly madrigal without retraction or bulging. No fluid or purulent material visualized behind the TM. Handle of malleus, umbo, cone of light, pars tensa/flaccid all easily visualized. NOSE - Midline and without cyanosis. No epistaxis or purulent drainage noted. Septum midline without deviation or septal hematoma noted. MOUTH/OROPHARYNX - Without perioral cyanosis. Buccal mucosa pink and moist and without leukoplakia. Tongue midline with equal elevation of palate bilaterally. No tonsillar hypertrophy, erythema, or exudates noted. dentition noted. NECK - Neck with FROM. Supple to palpation. lymphadenopathy noted. No nuchal rigidity. LUNGS - Chest wall symmetric without accessory muscle use, intercostals retractions, or central cyanosis. Normal vesicular breath sounds CTA B/L. No wheezes, rales, or rhonchi appreciated. CARDIAC - RRR with S1/S2. No murmur, rubs, or gallops appreciated. ABDOMEN - Abdominal contour without pulsations or visible masses. BS normoactive all four quadrants. No tenderness, palpable masses, hepato splenomegaly, or ascites noted. EXTREMITIES - No clubbing or peripheral cyanosis. No pretibial edema present. +3/5 radial, posterior tibial, and dorsalis pedis pulses palpated throughout. +5/5 strength noted in UE/LE bilaterally. NEUROLOGIC - Cranial nerves II through XII grossly intact. Sensory intact to light touch throughout. Patellar reflexes +2/4. Course Administered Medications Discontinued Medications Aspirin (Aspirin Chew 324 Mg) 324 mg PO NOW STA Stop: 04/21/20 16:39 Last Admin: 04/21/20 18:04 Dose: 324 mg Documented by: [id number] Clopidogrel Bisulfate (Clopidogrel Bisulfate 300 Mg Tab) 300 mg PO NOW STA Stop: 04/21/20 16:39 Last Admin: 04/21/20 18:04 Dose: 300 mg Documented by: [id number] Hydrocortisone Sodium Succinate (Hydrocortisone Sod Succinate 100 Mg/2 Ml Vial) 100 mg IV NOW STA Stop: 04/21/20 15:47 Last Admin: 04/21/20 16:29 Dose: 100 mg Documented by: [id number] Multivitamins 10 ml/ Thiamine HCl 100 mg/ Folic Acid 1 mg/Sodium Chloride 1, 011.2 mls @ 1,011.2 mls/hr IV .Q1H ONE Stop: 04/21/20 16:46 Last Admin: 04/21/20 16:32 Dose: 1,011.2 mls/hr Documented by: [id number] Magnesium Sulfate/Dextrose (Magnesium Sulfate / D5w) 1 gm in 100 mls @ 100 mls/hr IV NOW STA Stop: 04/21/20 17:34 Last Admin: 04/21/20 18:04 Dose: 100 mls/hr Documented by: [id number] Ioversol (Optiray 320 125ml) 118 ml IV ONCE ONE Stop: 04/21/20 15:54 Last Admin: 04/21/20 15:53 Dose: 118 ml Documented by: [id number] Critical Care Time I have personally spent greater than 30 minutes of critical care time in the direct management of this patient. This includes bedside care, interpretation of diagnostic studies, and testing, discussion with consultants, patient, and family members, and other required patient management activities. This 30 minutes is in excess of all separately billable procedures. Medical Decision Making Differential Diagnosis Infection, dehydration, metabolic abnormality, hypo/hyperglycemia, electrolyte disturbance, anemia, hypoxia, cardiac sources, intracerebral event, toxicologic, neurologic, as well as other pathologies. Medical Records Attestation: I reviewed the patient's medical records. Home Medications Current Medication List: was personally reviewed by ri Laboratory Data Attestation: I reviewed the patient's lab results. Result diagrams: 04/21/20 15:50 04/21/20 15:50 Lab Results 04/21/20 04/21/20 04/21/20 Range/Units 15:46 15:50 15:50 WBC 20.38 H (4.8-10.8) K/uL RBC 3.94 L (4.7-6.1) M/uL Hgb 11.7 L (14.0-18.0) g/dL Hct 36.0 L (42-52) % MCV 91.4 (80-100) fL MCH 29.7 (25-34) pg MCHC 32.5 (32-36) g/dL RDW Std Deviation 63.7 H (36.4-46.3) fL RDW Coeff of Melinda 19.5 H (11.5-14.5) % Plt Count 790 H (130-400) K/uL MPV 11.4 H (7.4-10.4) fL Absolute Nucleated RBC 0.20 H (0-0) K/uL Nucleated RBC % (auto) 1.0 % Neutrophils % (Manual) 58.6 % Lymphocytes % (Manual) 29.7 % Monocytes % (Manual) 2.7 % Eosinophils % (Manual) 0.9 % Metamyelocytes % (Man) 4.5 % Myelocytes % (Man) 3.6 % Neutrophils # (Manual) 11.94 H (1.4-6.5) K/uL Total Absolute Neuts 11.94 H (1.4-6.5) K/uL Lymphocytes # (Manual) 6.05 H (1.2-3.4) K/uL Total Abs Lymphocytes 6.05 H (1.2-3.4) K/uL Monocytes # (Manual) 0.55 (0.11-0.59) K/uL Eosinophils # (Manual) 0.18 (0-0.5) K/uL Metamyelocytes # (Man) 0.92 H (0-0) K/uL Myelocytes # (Manual) 0.73 H (0-0) K/uL PT 12.4 H (9.0-12.0) Seconds INR 1.2 H (0.9-1.1) APTT 30.3 (21.0-31.0) Seconds PTT Ratio 1.1 Sodium (136-145) mmol/L Potassium (3.5-5.1) mmol/L Chloride (98-107) mmol/L Carbon Dioxide (21-32) mmol/L Anion Gap (3-11) BUN (7-18) mg/dl Creatinine (0.6-1.4) mg/dl Est Cr Clr Drug Dosing ml/min Est GFR ( Amer) Est GFR (Non-Af Amer) BUN/Creatinine Ratio (10-20) Glucose (70-99) mg/dl POC Glucose 122 H (70-99) mg/dl Calcium (8.5-10.1) mg/dl Magnesium (1.8-2.4) mg/dl Total Bilirubin (0.2-1) mg/dl AST (15-37) U/L ALT (12-78) U/L Alkaline Phosphatase (45-117) U/L Troponin I (0-0.045) ng/ml Total Protein (6.4-8.2) gm/dl Albumin (3.4-5.0) gm/dl Globulin (2.5-4.0) gm/dl Albumin/Globulin Ratio (0.9-2) Random Cortisol mcg/dl Specimen Hemolysis Ethyl Alcohol mg/dL (0-3) mg/dl COVID-19 Eval Order SARS-CoV-2, RNA, NAAT (NEGATIVE) 04/21/20 04/21/20 04/21/20 Range/Units 15:50 15:50 15:50 WBC (4.8-10.8) K/uL RBC (4.7-6.1) M/uL Hgb (14.0-18.0) g/dL Hct (42-52) % MCV (80-100) fL MCH (25-34) pg MCHC (32-36) g/dL RDW Std Deviation (36.4-46.3) fL RDW Coeff of Melinda (11.5-14.5) % Plt Count (130-400) K/uL MPV (7.4-10.4) fL Absolute Nucleated RBC (0-0) K/uL Nucleated RBC % (auto) % Neutrophils % (Manual) % Lymphocytes % (Manual) % Monocytes % (Manual) % Eosinophils % (Manual) % Metamyelocytes % (Man) % Myelocytes % (Man) % Neutrophils # (Manual) (1.4-6.5) K/uL Total Absolute Neuts (1.4-6.5) K/uL Lymphocytes # (Manual) (1.2-3.4) K/uL Total Abs Lymphocytes (1.2-3.4) K/uL Monocytes # (Manual) (0.11-0.59) K/uL Eosinophils # (Manual) (0-0.5) K/uL Metamyelocytes # (Man) (0-0) K/uL Myelocytes # (Manual) (0-0) K/uL PT (9.0-12.0) Seconds INR (0.9-1.1) APTT (21.0-31.0) Seconds PTT Ratio Sodium 141 (136-145) mmol/L Potassium 4.0 (3.5-5.1) mmol/L Chloride 108 H (98-107) mmol/L Carbon Dioxide 23 (21-32) mmol/L Anion Gap 10.0 (3-11) BUN 25 H (7-18) mg/dl Creatinine 1.81 H (0.6-1.4) mg/dl Est Cr Clr Drug Dosing 25.9 ml/min Est GFR ( Amer) 37.6 Est GFR (Non-Af Amer) 32.4 BUN/Creatinine Ratio 13.8 (10-20) Glucose 113 H (70-99) mg/dl POC Glucose (70-99) mg/dl Calcium 8.3 L (8.5-10.1) mg/dl Magnesium 2.1 (1.8-2.4) mg/dl Total Bilirubin 0.7 (0.2-1) mg/dl AST 31 (15-37) U/L ALT 29 (12-78) U/L Alkaline Phosphatase 48 (45-117) U/L Troponin I < 0.015 (0-0.045) ng/ml Total Protein 6.7 (6.4-8.2) gm/dl Albumin 3.8 (3.4-5.0) gm/dl Globulin 2.9 (2.5-4.0) gm/dl Albumin/Globulin Ratio 1.3 (0.9-2) Random Cortisol 13.74 mcg/dl Specimen Hemolysis Ethyl Alcohol mg/dL (0-3) mg/dl COVID-19 Eval [email or web address] SARS-CoV-2, RNA, NAAT (NEGATIVE) 04/21/20 04/21/20 Range/Units 15:50 16:13 WBC (4.8-10.8) K/uL RBC (4.7-6.1) M/uL Hgb (14.0-18.0) g/dL Hct (42-52) % MCV (80-100) fL MCH (25-34) pg MCHC (32-36) g/dL RDW Std Deviation (36.4-46.3) fL RDW Coeff of Melinda (11.5-14.5) % Plt Count (130-400) K/uL MPV (7.4-10.4) fL Absolute Nucleated RBC (0-0) K/uL Nucleated RBC % (auto) % Neutrophils % (Manual) % Lymphocytes % (Manual) % Monocytes % (Manual) % Eosinophils % (Manual) % Metamyelocytes % (Man) % Myelocytes % (Man) % Neutrophils # (Manual) (1.4-6.5) K/uL Total Absolute Neuts (1.4-6.5) K/uL Lymphocytes # (Manual) (1.2-3.4) K/uL Total Abs Lymphocytes (1.2-3.4) K/uL Monocytes # (Manual) (0.11-0.59) K/uL Eosinophils # (Manual) (0-0.5) K/uL Metamyelocytes # (Man) (0-0) K/uL Myelocytes # (Manual) (0-0) K/uL PT (9.0-12.0) Seconds INR (0.9-1.1) APTT (21.0-31.0) Seconds PTT Ratio Sodium (136-145) mmol/L Potassium (3.5-5.1) mmol/L Chloride (98-107) mmol/L Carbon Dioxide (21-32) mmol/L Anion Gap (3-11) BUN (7-18) mg/dl Creatinine (0.6-1.4) mg/dl Est Cr Clr Drug Dosing ml/min Est GFR ( Amer) Est GFR (Non-Af Amer) BUN/Creatinine Ratio (10-20) Glucose (70-99) mg/dl POC Glucose (70-99) mg/dl Calcium (8.5-10.1) mg/dl Magnesium (1.8-2.4) mg/dl Total Bilirubin (0.2-1) mg/dl AST (15-37) U/L ALT (12-78) U/L Alkaline Phosphatase (45-117) U/L Troponin I (0-0.045) ng/ml Total Protein (6.4-8.2) gm/dl Albumin (3.4-5.0) gm/dl Globulin (2.5-4.0) gm/dl Albumin/Globulin Ratio (0.9-2) Random Cortisol mcg/dl Specimen Hemolysis Ethyl Alcohol mg/dL 14.4 H (0-3) mg/dl COVID-19 Eval Order SARS-CoV-2, RNA, NAAT NEGATIVE (NEGATIVE) Imaging Data Radiologist's Impression: [place], [place] [phone] CT Scan Report Patient: GIO GAITAN Admit Date: 04/21/20 MR#: [id number] Address1: [address] Acct ID:[id number] Address2: Date: [address] [facility] Zip: [place] [address] Age: 89 Location: ED Sex: M Room/Bed: Att Phy: Diagnosis: DISORIENTED, WEAKNESS Yesenia Phy: James Sinha M.D. Service Date: 04/21/20 Fam Phy: Interpreting Phy: Delvin Turner MD Admit Phy: Ordering Phy: Eusebio Moeller MD cc: ~ UNENHANCED CT OF THE BRAIN; CT ANGIOGRAM OF THE BRAIN; CT ANGIOGRAM OF THE NECK CLINICAL HISTORY: Strokelike symptoms. Generalized weakness. Change in mental status. COMPARISON STUDY: CT of the brain dated 01/20/2018. Carotid artery ultrasound dated 06/14/2016. TECHNIQUE: Unenhanced axial CT scan of the brain is performed. Subsequently, following the IV administration of 118 of Optiray 320, CT angiogram of the head and neck was performed from the aortic arch to the vertex. Images are reviewed in the axial, sagittal, and coronal planes. 3-D MIPS images are created and assessed. IV contrast was administered without complication. All measurements were calculated based on NASCET criteria. A dose lowering technique was utilized adhering to the principles of ALARA. CT DOSE: 1211.64 mGy.cm FINDINGS: Brain parenchyma: There is age-related involutional change noting mild subcortical and periventricular microangiopathic disease. There is no hemorrhage, mass effect, or evidence of acute territorial ischemia by CT criteria. There is no evidence of enhancing mass lesion on the angiogram phase images. The ventricles, sulci, and cisterns are prominent secondary to involutional change. Madrigal-white matter differentiation is preserved. No extra- axial fluid collection is seen. Thoracic aorta: There is atherosclerotic calcification of the thoracic aorta. Visualized portions of the thoracic aorta are normal in caliber. The aortic arch demonstrates standard 3-vessel anatomy. Right carotid arterial system: The right common carotid artery is widely patent. Atherosclerotic plaque in the carotid bulb causes less than 50% narrowing of the proximal right internal carotid artery. The remainder of the right internal carotid artery is widely patent, as is the right external carotid artery. Left carotid arterial system: The left common carotid artery is widely patent. Atherosclerotic plaque causes approximately 50% stenosis at the origin of the left internal carotid artery. The remainder of the left internal carotid artery is widely patent, as is the left external carotid artery. Vertebral arteries: The vertebral arteries are widely patent bilaterally noting a right-sided dominance. Subclavian arteries: Widely patent bilaterally. Intracranial vasculature: There is atherosclerotic calcification of the cavernous carotid and vertebral arteries. Atherosclerotic irregularity seen throughout the cavernous carotid arteries. The internal carotid arteries are patent at the skull base, as are the anterior and middle cerebral arteries bilaterally. The vertebrobasilar system and posterior cerebral arteries are widely patent. The right vertebral artery is dominant. The left vertebral artery is diminutive and terminates as the PICA. There is no aneurysm, high-grade stenosis, or focal vessel cut off seen throughout the intracranial circulation. Jugular veins: Patent bilaterally. Dural sinuses: Patent. Lung apices: Partially visualized upper lobe lung parenchyma appears clear. Soft tissues: The visualized pharyngeal soft tissues are normal in appearance noting angiographic phase technique. The oropharyngeal airway appears widely patent. The salivary and thyroid glands are normal in appearance. No cervical lymphadenopathy is seen. Skeletal structures: The skeletal structures are osteopenic. The calvarium appears intact. The cervical spine is maintained noting multilevel spondylosis. No lytic or blastic lesion is seen. Orbits: The bony orbits are intact. Orbital contents are normal as visualized noting bilateral ocular lens implants. Sinuses and mastoids: There is trace mucosal thickening within the maxillary antra. The remaining paranasal sinuses are clear. The mastoid air cells are well pneumatized. Cerumen fills the external auditory canals. IMPRESSION: 1. There is no hemorrhage, mass effect, or evidence of acute territorial ischemia by CT criteria. 2. Unremarkable CT angiogram of the brain. 3. Atherosclerotic plaque causes approximately 50% luminal stenosis at the origin of the left internal carotid artery. The left carotid system is otherwise widely patent. 4. Atherosclerotic plaque causes less than 50% stenosis of the proximal right internal carotid artery. The right carotid system is otherwise widely patent. 5. The vertebral arteries are patent. The left vertebral artery is diminutive and terminates as the PICA. ACT 112: Negative or not required by law. Electronically signed by: Delvin Turner M.D. 04/21/2020 4:09 PM Dictated: 04/21/20 1557 Transcribed: 04/21/20 1557 [place], [place] [phone] XRay Report Patient: GIO GAITAN Admit Date: 04/21/20 MR#: [id number] Address[address]: [address] Acct ID:[id number] Address2: Date: [address] [facility]: [place] [address] Age: 89 Location: ED Sex: M Room/Bed: Att Phy: Diagnosis: DISORIENTED, WEAKNESS Yesenia Phy: James Sinha M.D. Service Date: 04/21/20 Fam Phy: Interpreting Phy: Delvin Turner MD Admit Phy: Ordering Phy: Eusebio Moeller MD cc: ~ SINGLE VIEW CHEST CLINICAL HISTORY: Strokelike symptoms. FINDINGS: An AP, portable, upright chest radiograph is compared to study dated 03/01/2020. The heart is enlarged noting atherosclerotic calcification of the thoracic aorta. The pulmonary vasculature is noncongested. Chronic interstitial thickening is similar to previous. There is no airspace consolidation or large pleural effusion. No pneumothorax is seen. The skeletal structures are o steopenic. The bony thorax is grossly intact. A right shoulder arthroplasty is in place. IMPRESSION: Cardiomegaly with no acute cardiopulmonary abnormality. ACT 112: Negative or not required by law. Electronically signed by: Delvin Turner M.D. 04/21/2020 4:32 PM Dictated: 04/21/20 1631 Transcribed: 04/21/20 1631 [place], [place] [phone] Magnetic Resonance Report Patient: GIO GAITAN Admit Date: 04/21/20 MR#: [id number] Address[address]: [address] Acct ID:[id number] Address2: Date: [address] [facility]: [place] [address] Age: 89 Location: ED Sex: M Room/Bed: Att Phy: Diagnosis: DISORIENTED, WEAKNESS Yesenia Phy: James Sinha M.D. Service Date: 04/21/20 [facility] Phy: Interpreting Phy: Delvin Turner MD Admit Phy: Ordering Phy: Eusebio Moeller MD cc: ~ MRI OF THE BRAIN WITHOUT IV CONTRAST CLINICAL HISTORY: Change in mental status. COMPARISON STUDY: CT of the brain dated 04/21/2020. TECHNIQUE: MRI of the brain was performed utilizing various T1 and T2-weighted sequences in the axial, sagittal, and coronal planes. IV contrast was not administered for this examination. FINDINGS: Brain parenchyma: There is age-related involutional change noting mild to moderate subcortical and periventricular microangiopathic disease. There is no hemorrhage or mass effect. There is no restricted diffusion to suggest acute ischemia. Madrigal-white matter differentiation is preserved. No extra-axial fluid collection is seen. The cerebellar tonsils are normal in configuration. Ventricles, sulci, and cisterns: Prominent secondary to involutional change. Pituitary and sella: Unremarkable. Intracranial vasculature: Normal flow voids are maintained at the skull base. Orbits: The bony orbits are grossly intact. Orbital contents are normal in appearance noting bilateral ocular lens implants. Sinuses and mastoids: Mild mucosal thickening is noted within the maxillary and ethmoid sinuses. The remaining paranasal sinuses are clear, as are the mastoid air cells. Calvarium: Unremarkable. Cervical cord: Partially visualized cervical spinal cord is normal in morphology and signal intensity. IMPRESSION: No acute intracranial abnormality. ACT 112: Negative or not required by law. Electronically signed by: Delvin Turner M.D. 04/21/2020 5:49 PM Dictated: 04/21/201746 Transcribed: 04/21/201746 ECG Data Attestation: I personally reviewed and interpreted this ECG as follows: Indication: + altered mental status Rate (beats per minute): 65 ECG [place]: + Left axis deviation ECG ST segments: no ST depression and no ST elevation ECG Findings: + Q waves (Septal) Comparison ECG Date: from (01/20/2018) Change: no significant change MDM Narrative Patient was seen and evaluated as above in room A11. Review was performed of nursing notes and vital signs. I did review pertinent previous visits and patient history. After obtaining a thorough history and physical examination the above work up was performed. This is an 89-year-old male who presents emergency department the acute change in mental status. Upon arrival to the emergency department the patient is speaking nonsensical and is having difficulty finding words. He is able to follow commands. Stroke work-up was initiated. Due to the patient's past history of alcohol abuse as well as his alcohol use today he was started on magnesium as well as a banana bag. While he was speaking with the stroke neurologist the patient's symptoms spontaneously resolved. He is back to his baseline. He reports he has been having palpitations. I did consider TPA however at this point I do not feel he is a TPA candidate as he is returned to his baseline. I am going to load the patient with both aspirin as well as Plavix. While in the department, I personally reevaluated the patient several times and each time the patient was found to be resting comfortably. The patient was educated upon management, educated upon todays findings/results, educated upon importance of follow up from today's visit, educated upon symptoms in which to return, had questions answered prior to discharge, verbalized understanding, and was discharged home in good condition. An order was placed for continuous cardiac monitoring. The monitor shows a rate of 60 with Normal SInus rhythm. The patient was evaluated during a period of high volume and high acuity while the hospital was at overcapacity during the global COVID-19 pandemic, and that diagnosis was suspected/considered upon their initial presentation. Their evaluation, treatment and testing was consistent with current guidelines for patients who present with complaints or symptoms that may be related to COVID- 19. Impression & Plan Altered mental status, TIA (transient ischemic attack), Dehydration Discharge Plan Visit Data Chief Complaint: Altered Mental Status Stated Complaint: DISORIENTED, WEAKNESS ED Provider: Eusebio Moeller Discharge Problem: Altered mental status, TIA (transient ischemic attack), Dehydration Patient Disposition: Admitted As Inpatient Discharge Instructions Interventions: ED Discharge Assessment Last Done: 04/21/20 19:03 Discharge Problem: Altered mental status Qualifiers: Altered mental status type: unspecified Qualified Code(s): R41.82 - Altered mental status, unspecified
[2020-04-21] MEDS ORDERED: OPTIRAY 320 125ml IV ONE (15:53)
[2020-04-21 16:04] LABS: Mean Corpuscular Hgb Conc 32.5 g/dL (32-36); Mean Platelet Volume 11.4 fL (7.4-10.4); Platelet Count 790 K/uL (130-400)
--- NOTE | 2020-04-21 16:11 | CT Scan Report ---
UNENHANCED CT OF THE BRAIN; CT ANGIOGRAM OF THE BRAIN; CT ANGIOGRAM OF THE NECK CLINICAL HISTORY: Strokelike symptoms. Generalized weakness. Change in mental status. COMPARISON STUDY: CT of the brain dated 01/20/2018. Carotid artery ultrasound dated 06/14/2016. TECHNIQUE: Unenhanced axial CT scan of the brain is performed. Subsequently, following the IV adminis tration of 118 of [address] 320, CT angiogram of the head and neck was performed from the aortic arch t o the vertex. Images are reviewed in the axial, sagittal, and coronal planes. 3-D MIPS images are cre ated and assessed. IV contrast was administered without complication. All measurements were calculate d based on NASCET criteria. A dose lowering technique was utilized adhering to the principles of ALA RA. CT DOSE: 1211.64 mGy.cm FINDINGS: Brain parenchyma: There is age-related involutional change noting mild subcortical and periventricula r microangiopathic disease. There is no hemorrhage, mass effect, or evidence of acute territorial isc hemia by CT criteria. There is no evidence of enhancing mass lesion on the angiogram phase images. Th e ventricles, sulci, and cisterns are prominent secondary to involutional change. Madrigal-white matter d ifferentiation is preserved. No extra-axial fluid collection is seen. Thoracic aorta: There is atherosclerotic calcification of the thoracic aorta. Visualized portions of the thoracic aorta are normal in caliber. The aortic arch demonstrates standard 3-vessel anatomy. Right carotid arterial system: The right common carotid artery is widely patent. Atherosclerotic plaq ue in the carotid bulb causes less than 50% narrowing of the proximal right internal carotid artery. The remainder of the right internal carotid artery is widely patent, as is the right external carotid artery. Left carotid arterial system: The left common carotid artery is widely patent. Atherosclerotic plaque causes approximately 50% stenosis at the origin of the left internal carotid artery. The remainder o f the left internal carotid artery is widely patent, as is the left external carotid artery. Vertebral arteries: The vertebral arteries are widely patent bilaterally noting a right-sided dominan ce. Subclavian arteries: Widely patent bilaterally. Intracranial vasculature: There is atherosclerotic calcification of the cavernous carotid and vertebr al arteries. Atherosclerotic irregularity seen throughout the cavernous carotid arteries. The interna l carotid arteries are patent at the skull base, as are the anterior and middle cerebral arteries lola aterally. The vertebrobasilar system and posterior cerebral arteries are widely patent. The right soraida tebral artery is dominant. The left vertebral artery is diminutive and terminates as the PICA. There is no aneurysm, high-grade stenosis, or focal vessel cut off seen throughout the intracranial circula tion. Jugular veins: Patent bilaterally. Dural sinuses: Patent. Lung apices: Partially visualized upper lobe lung parenchyma appears clear. Soft tissues: The visualized pharyngeal soft tissues are normal in appearance noting angiographic pha se technique. The oropharyngeal airway appears widely patent. The salivary and thyroid glands are nor mal in appearance. No cervical lymphadenopathy is seen. Skeletal structures: The skeletal structures are osteopenic. The calvarium appears intact. The cervic al spine is maintained noting multilevel spondylosis. No lytic or blastic lesion is seen. Orbits: The bony orbits are intact. Orbital contents are normal as visualized noting bilateral ocular lens implants. Sinuses and mastoids: There is trace mucosal thickening within the maxillary antra. The remaining par anasal sinuses are clear. The mastoid air cells are well pneumatized. Cerumen fills the external kelsea tory canals. IMPRESSION: 1. There is no hemorrhage, mass effect, or evidence of acute territorial ischemia by CT criteria. 2. Unremarkable CT angiogram of the brain. 3. Atherosclerotic plaque causes approximately 50% luminal stenosis at the origin of the left interna l carotid artery. The left carotid system is otherwise widely patent. 4. Atherosclerotic plaque causes less than 50% stenosis of the proximal right internal carotid artery . The right carotid system is otherwise widely patent. 5. The vertebral arteries are patent. The left vertebral artery is diminutive and terminates as the P ICA. ACT 112: Negative or not required by law. Electronically signed by: Delvin Turner M.D. 04/21/2020 4:09 PM
[2020-04-21 16:20] LABS: INR 1.2 (0.9-1.1); Partial Thromboplastin Ratio 1.1; Partial Thromboplastin Time 30.3 Seconds (21.0-31.0); Prothrombin Time 12.4 Seconds (9.0-12.0)
[2020-04-21 16:30] LABS: Alanine Aminotransferase 29 U/L (12-78); Albumin Globulin Ratio 1.3 (0.9-2); Albumin Level 3.8 gm/dl (3.4-5.0); Alkaline Phosphatase 48 U/L (45-117); Aspartate Aminotransferase 31 U/L (15-37); BUN Creatinine Ratio 13.8 (10-20); Bilirubin,Total 0.7 mg/dl (0.2-1); Blood Urea Nitrogen 25 mg/dl (7-18); Calcium 8.3 mg/dl (8.5-10.1); Carbon Dioxide 23 mmol/L (21-32); Chloride 108 mmol/L (98-107); Creatinine Clr Calc Pharmacy 25.9 ml/min; Est GFR (African American) 37.6; Est GFR (Non-African American) 32.4; Globulin 2.9 gm/dl (2.5-4.0); Glucose 113 mg/dl (70-99); Magnesium 2.1 mg/dl (1.8-2.4); Sodium 141 mmol/L (136-145); Total Protein 6.7 gm/dl (6.4-8.2); Troponin I < 0.015 ng/ml (0-0.045)
--- NOTE | 2020-04-21 16:33 | XRay Report ---
SINGLE VIEW CHEST CLINICAL HISTORY: Strokelike symptoms. FINDINGS: An AP, portable, upright chest radiograph is compared to study dated 03/01/2020. The heart is enlarged noting atherosclerotic calcification of the thoracic aorta. The pulmonary vasculature is noncongested. Chronic interstitial thickening is similar to previous. There is no airspace consolidat ion or large pleural effusion. No pneumothorax is seen. The skeletal structures are osteopenic. The b cristin thorax is grossly intact. A right shoulder arthroplasty is in place. IMPRESSION: Cardiomegaly with no acute cardiopulmonary abnormality. ACT 112: Negative or not required by law. Electronically signed by: Delvin Turner M.D. 04/21/2020 4:32 PM
[2020-04-21] MEDS ORDERED: MAGNESIUM SULFATE / D5W 1 GM/100 ML BAG IV STA (16:35)
[2020-04-21] MEDS ORDERED: SODIUM CHLORIDE 0.9% 1000ML 500 ML IV ONE (16:35)
[2020-04-21] MEDS ORDERED: CLOPIDOGREL BISULFATE 300 MG TAB PO STA (16:38)
[2020-04-21] MEDS ORDERED: ASPIRIN CHEW 324 MG PO STA (16:38)
[2020-04-21 16:45] LABS: Hemoglobin 11.7 g/dL (14.0-18.0); Mean Corpuscular Hemoglobin 29.7 pg (25-34); Mean Corpuscular Volume 91.4 fL (80-100); RDW Coefficient of Variation 19.5 % (11.5-14.5); RDW Standard Deviation 63.7 fL (36.4-46.3); Red Blood Count 3.94 M/uL (4.7-6.1); White Blood Count 20.38 K/uL (4.8-10.8)
[2020-04-21 16:47] LABS: ALC (manual) 6.05 K/uL (1.2-3.4); ANC (manual) 11.94 K/uL (1.4-6.5); Eosinophils # (manual) 0.18 K/uL (0-0.5); Eosinophils % (manual) 0.9 %; Lymphocytes # (manual) 6.05 K/uL (1.2-3.4); Lymphocytes % (manual) 29.7 %; Metamyelocytes # (manual) 0.92 K/uL (0-0); Metamyelocytes % (manual) 4.5 %; Monocytes # (manual) 0.55 K/uL (0.11-0.59); Monocytes % (manual) 2.7 %; Myelocytes # (manual) 0.73 K/uL (0-0); Myelocytes % (manual) 3.6 %; Neutrophils # (manual) 11.94 K/uL (1.4-6.5); Neutrophils % (manual) 58.6 %
--- NOTE | 2020-04-21 17:04 | History & Physical Report ---
Date of Service April 21, 2020 Assessment & Plan (1) TIA (transient ischemic attack): Convincing TIA symptoms that resolved within several hours. - Started ASA/Plavix in the ED -> Continue - MRI brain pending - Neurology consult ordered - PT/OT/ASSEMBLER INSTALLER GENERAL - Will order A1c, lipids, echo - Monitor on telemetry - Given alcohol hx and sensation of palpitations, will consider Holter monitor on discharge for possible paroxysmal afib (2) Diabetes: No A1c in charts. - Get A1c - Hold metformin - Sliding scale insulin (3) HTN (hypertension): BP is 165/75 in the ED. - Allow for permissive HTN for now. - Better BP control as outpatient (4) Asthma: No shortness of breath or wheezing. - Continue home Symbicort (or hospital formulary) - Albuterol PRN (5) Alcohol abuse: Drinks occasional beer, but not really drinking heavily at this point. - Monitor for withdrawal (6) Polymyalgia rheumatica: Presently on no steroids. - Monitor (7) Benign prostatic hyperplasia with urinary obstruction and other lower urinary tract symptoms: No LUTS at present. - Continue tamsulosin (8) Severe obstructive sleep apnea: [facility]. Doesn't wear it at home. - No inpatient needs (9) DVT prophylaxis: SCDs - Low DVT risk per admission calculator History of Present Illness Primary Care Provider: James Sinha MD 89yo M w/ hx of DM, HTN, HLD who presents with possible TIA. Was in his normal state of health at 12:30pm today when his daughter picked him up for lunch. At 2:00pm, she noted that he was uncoordinated and couldn't stand up, was "confused," and had a word-salad response to questions. However, he was able to follow commands and act appropriately. In the ED, he spoke with the tele-stroke neurologist and was sent to CT. When the ED provider went back to assess him, he was back to baseline. Notes that he has had a recent sensation of palpitations, but no official diagnosis of afib in the past. Allergies Allergy/AdvReac Type Severity Reaction Status Date / Time Penicillins Allergy Unknown Unknown in Verified 04/21/20 17:26 childhood Home Medications Medication Instructions Recorded Confirmed Type metformin 500 mg PO QDD 01/20/18 04/21/20 History albuterol sulfate [ProAir HFA] 2 puff INHALATION Q4H PRN 01/21/18 04/21/20 History tamsulosin 0.4 mg capsule 0.4 mg PO QAM cap 04/04/19 04/21/20 History irbesartan 75 mg PO QAM 12/02/19 04/21/20 History aspirin [Aspirin Low Dose] 81 mg PO QAM 03/01/20 04/21/20 History zafirlukast 20 mg PO QAM 03/01/20 04/21/20 History budesonide-formoterol HFA 160 2 puff INHALATION BID #1 inhaler 03/23/20 04/21/20 Rx mcg-4.5 mcg/actuation aerosol inhaler psyllium husk 0.52 g PO BID 04/21/20 04/21/20 History Past Med/Surg History Medical History (Updated 04/21/20 @ 17:09 by Steve Regalado MD) Acquired deviated nasal septum Asthma inhaler daily and prn/nebulizer prn BPH (benign prostatic hyperplasia) Cystitis Diabetes mellitus, type 2 metformin daily Hearing deficit Hypertension 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 Sleep apnea CPAP Stomach pain Urge incontinence of urine Surgical History History of hemiarthroplasty of shoulder History of laparoscopic cholecystectomy Family History Other Asthma Coronary heart disease No family history of adverse response to anesthesia Social History Smoking Status: Never smoker Second Hand Exposure: Yes ( smokes); Hx Alcohol Use: Yes Alcohol type: beer Hx Substance Use: No Preferred Language: Turkish Communication Ability: Effective Visual Impairment: No 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 Beliefs That Will Affect Care: None marital status: Current Living Situation: Spouse Current Living Situation Comment: resides at home with Feels Safe at Home: Yes Assistive Devices: CPAP and Nebulizer Review of Systems Review of Systems: All systems reviewed & are unremarkable except as noted in HPI & below Physical Exam Constitutional: WD/WN, vitals as above Eyes: EOM intact bilaterally; no conjunctival abnormality ENMT: external ear and nose normal, oropharynx normal Neck: trachea midline, no thyromegaly normal visual inspection Respiratory: normal respiratory effort, lungs clear to auscultation no respiratory distress Cardiovascular: RRR, no murmur, no edema Gastrointestinal (Abdomen): Inspection/Auscultation: abdomen normal to inspection; abdomen not distended Musculoskeletal: no cyanosis or clubbing, extremities motor strength 5/5 Skin: no rashes, warm and dry Neurologic: moves all extremities and awake Psychiatric: Orientation: alert, oriented to person and cooperative Results & Data Results & Data ([facility]) Vital Signs (Past 12 Hours) Vital Signs Temp Pulse Pulse Resp BP BP Pulse Ox 04/21/20 16:44 68 20 158/60 H 98 04/21/20 16:17 66 16 143/54 H 97 04/21/20 15:21 36.5 C 66 18 120/57 L 97 PG Care Time/CCT Total # of Minutes Spent Total Time Spent with Patient: Total time spent is greater than 50% in coordination of care (as documented) at patient's floor/unit and/or counseling patient: Coding Level of Care Code 95848 Initial Inpt Care Lvl 3 Diagnoses TIA (transient ischemic attack) G45.9 Diabetes E11.9 HTN (hypertension) I10 Asthma J45.909 Alcohol abuse F10.10 Polymyalgia rheumatica M35.3 Benign prostatic hyperplasia with urinary obstruction and other lower urinary tract symptoms N40.1; N13.8 Severe obstructive sleep apnea G47.33 DVT prophylaxis Z29.9
--- NOTE | 2020-04-21 17:51 | Magnetic Resonance Report ---
MRI OF THE BRAIN WITHOUT IV CONTRAST CLINICAL HISTORY: Change in mental status. COMPARISON STUDY: CT of the brain dated 04/21/2020. TECHNIQUE: MRI of the brain was performed utilizing various T1 and T2-weighted sequences in the axial , sagittal, and coronal planes. IV contrast was not administered for this examination. FINDINGS: Brain parenchyma: There is age-related involutional change noting mild to moderate subcortical and pe riventricular microangiopathic disease. There is no hemorrhage or mass effect. There is no restricted diffusion to suggest acute ischemia. Madrigal-white matter differentiation is preserved. No extra-axial fluid collection is seen. The cerebellar tonsils are normal in configuration. Ventricles, sulci, and cisterns: Prominent secondary to involutional change. Pituitary and sella: Unremarkable. Intracranial vasculature: Normal flow voids are maintained at the skull base. Orbits: The bony orbits are grossly intact. Orbital contents are normal in appearance noting bilatera l ocular lens implants. Sinuses and mastoids: Mild mucosal thickening is noted within the maxillary and ethmoid sinuses. The remaining paranasal sinuses are clear, as are the mastoid air cells. Calvarium: Unremarkable. Cervical cord: Partially visualized cervical spinal cord is normal in morphology and signal intensity . IMPRESSION: No acute intracranial abnormality. ACT 112: Negative or not required by law. Electronically signed by: Delvin Turner M.D. 04/21/2020 5:49 PM
[2020-04-21] MEDS ORDERED: ONDANSETRON INJ 2 MG/ML 2 ML VIAL IV PRN (19:37)
[2020-04-21] MEDS ORDERED: ACETAMINOPHEN 325 MG TAB PO PRN (19:37)
[2020-04-21] MEDS ORDERED: ALBUTEROL HFA 8 GM INHALER INH PRN (19:56)
[2020-04-21] MEDS ORDERED: CARBOHYDRATES FOR HYPOGLYCEMIA PO PRN (20:29)
[2020-04-21] MEDS ORDERED: DEXTROSE 50% 50 ML SYRINGE IV PRN (20:29)
[2020-04-21] MEDS ORDERED: GLUCOSE 10 TABS/TUBE PO PRN (20:29)
[2020-04-21] MEDS ORDERED: GLUCAGON FOR INJ 1 MG VIAL SQ PRN (20:29)
[2020-04-21] MEDS ORDERED: hydrALAZINE HCL 20 MG/ML VIAL IV PRN (20:29)
[2020-04-21] MEDS ORDERED: GLUCOSE 40% GEL 15 GM TUBE PO PRN (20:29)
[2020-04-21] MEDS: INSULIN ASPART 100 UNITS/ML 3 ML PEN SC SCH (22:58)
[2020-04-22 06:06] LABS: Hematocrit (blood only) 34.8 % (42-52); Hemoglobin 11.6 g/dL (14.0-18.0); Mean Corpuscular Hemoglobin 29.7 pg (25-34); Mean Corpuscular Hgb Conc 33.3 g/dL (32-36); Mean Platelet Volume 11.5 fL (7.4-10.4); Nucleated RBC # (auto) 0.13 K/uL (0-0); Nucleated RBC % (auto) 0.6 %; Platelet Count 755 K/uL (130-400); RDW Coefficient of Variation 19.6 % (11.5-14.5); RDW Standard Deviation 62.2 fL (36.4-46.3); Red Blood Count 3.91 M/uL (4.7-6.1); White Blood Count 22.66 K/uL (4.8-10.8)
[2020-04-22 06:44] LABS: BUN Creatinine Ratio 15.9 (10-20); Calcium 8.2 mg/dl (8.5-10.1); Creatinine Clr Calc Pharmacy 33.7 ml/min; Est GFR (African American) 51.7; Est GFR (Non-African American) 44.6; Magnesium 2.5 mg/dl (1.8-2.4); Potassium 3.7 mmol/L (3.5-5.1)
[2020-04-22] MEDS: CLOPIDOGREL BISULFATE 75 MG TAB PO SCH (08:57)
[2020-04-22] MEDS: IRBESARTAN 75 MG TAB PO SCH (08:58)
[2020-04-22] MEDS: ASPIRIN 81 MG ECTAB PO SCH (08:58)
[2020-04-22] MEDS: TAMSULOSIN HCL 0.4 MG CAP PO SCH (08:58)
[2020-04-22] MEDS: FLUTICASONE/VILANTEROL 200/25MCG 14 PUFFS/INHALER INH SCH (08:59)
[2020-04-22] MEDS: INSULIN ASPART 100 UNITS/ML 3 ML PEN SC SCH ×4 (09:01→20:27)
--- NOTE | 2020-04-22 10:15 | Neurology Consultation ---
Date of Consultation April 22, 2020 Assessment & Plan (1) Altered mental status: Lewis Yap is an 89 yo man w/ PMH of HTN, BENSON, DM, hearing deficit, COPD, h/o PMR, alcohol abuse, asthma, and intraductal papillary adenoma of the pancreas who p/t [facility] with acute onset of word finding difficulty/word salad after having an alcoholic drink at lunch with daughter. Symptom localization: left MCA territory, less likely left thalamus (thalamic aphasia) Stroke mechanism: hypercoagulable from thrombocytosis vs underlying Stroke WorkUp: - CT head: no hemorrhage or hypodensity, mild to moderate generalized atrophy with ex vacuo dilation - CTA head/neck: no LVO, aneurysm; there is mild stenosis of bilateral ICAs, hypoplastic left vertebral artery that terminates in the left PICA and dominant right vertebral artery noted. Diffuse intracranial atherosclerosis. - MRI brain: no acute or chronic infarct, moderate SVID with dilated perivascular spaces, moderate generalized atrophy with ex vacuo dilation noted also - TTE: pending - Telemetry: pending - A1c: pending - FLP: 57 - Troponin, TSH: negative, pending - UA pending given ongoing AMS and leukocytosis Stroke Management: - Acute treatment: ASA - Continuous cardiac monitoring, will consider Holter monitor as outpatient if telemetry here unrevealing - Vitals, Neurochecks, NIHSS per unit routine - BP parameters: SBP CAP 180, restart home anti-hypertensives for goal normotension - Complete ischemic stroke workup with TTE without bubble, A1c, TSH - Consult speech, PT, OT for supportive management - Will school counselor concerning stroke education, smoking cessation, healthy diet, physical activity, weight loss - Follow up with PCP for assistance with outpatient goals (BP <130/80, LDL <70, A1c <7) - Follow up in neurology clinic in 6-8 weeks Secondary Stroke Prevention: - Antiplatelet: continue aspirin 81mg daily as he has not been taking it recently - Anticoagulation: Not indicated at this time - Statin: consider low dose atorvastatin given diffuse intracranial atherosclerosis - recommend hematology consult for thrombocytosis which has been present since at least 02/2020 (can be as an outpatient as he would like to go home if possible) HTN: - BP parameters, as above - Restart home medications with goal of lowering BP to normotension over next 3- 4 days FEN/GI: - Diet: NPO until cleared by Speech evaluation - Monitor lytes and replete PRN Glucose Control: - Sliding scale insulin and accuchecks per primary team to avoid hyperglycemia Thank you for this interesting consult. Plan of care was discussed with primary team. Please call with any questions. (2) TIA (transient ischemic attack): (3) Thrombocytosis: History of Present Illness Attending Physician: Steve Regalado MD History of Present Illness Lewis Yap is an 89 yo man w/ PMH of HTN, BENSON, DM, hearing deficit, COPD, h/o PMR, alcohol abuse, asthma, and intraductal papillary adenoma of the pancreas who p/t [facility] with acute onset of word finding difficulty/word salad after having an alcoholic drink at lunch with daughter. 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 In the ED, he was afebrile, BP 120/57, heart rate 66, respiratory rate 18, satting 97% on room air. Labs notable for WBC 20.38, hemoglobin 11.7, platelets 790, INR 1.2, Sodium/Potassium within normal, anion gap 10, BUN 25, creatinine 1.81, glucose 113, calcium mildly low at 8.3, magnesium 2.1, LFTs within normal, troponin negative, alcohol level 14.4, Covid negative. Imaging independently reviewed. CT head shows no hemorrhage or hypodensity, mild to moderate generalized atrophy with ex vacuo dilation. CTA head and neck shows no LVO, aneurysm; there is mild stenosis of bilateral ICAs, hypoplastic left vertebral artery that terminates in the left PICA and dominant right vertebral artery noted.MRI brain shows no acute or chronic infarct, moderate SVID with dilated perivascular spaces, moderate generalized atrophy with ex vacuo dilation noted also. On evaluation, he reports that he stopped taking his aspirin awhile ago. He reports that he ate lunch and stood up to walk, feeling imbalanced when he tried to walk. He reports that family caught him and brought him to the ED for further evaluation. Denies speech difficulties, N/T/W/facial droop/vision changes. Allergies Allergy/AdvReac Type Severity Reaction Status Date / Time Penicillins Allergy Unknown Unknown in Verified 04/21/20 17:26 childhood Home Medications Medication Instructions Recorded Confirmed Type metformin 500 mg PO QDD 01/20/18 04/21/20 History albuterol sulfate [ProAir HFA] 2 puff INHALATION Q4H PRN 01/21/18 04/21/20 History tamsulosin 0.4 mg capsule 0.4 mg PO QAM cap 04/04/19 04/21/20 History irbesartan 75 mg PO QAM 12/02/19 04/21/20 History aspirin [Aspirin Low Dose] 81 mg PO QAM 03/01/20 04/21/20 History zafirlukast 20 mg PO QAM 03/01/20 04/21/20 History budesonide-formoterol HFA 160 2 puff INHALATION BID #1 inhaler 03/23/20 04/21/20 Rx mcg-4.5 mcg/actuation aerosol inhaler psyllium husk 0.52 g PO BID 04/21/20 04/21/20 History Patient History Medical History (Updated 04/22/20 @ 10:09 by Xochilt Andrea MD) Acquired deviated nasal septum Asthma inhaler daily and prn/nebulizer prn BPH (benign prostatic hyperplasia) Cystitis Diabetes mellitus, type 2 metformin daily Hearing deficit Hypertension 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 Sleep apnea CPAP Stomach pain Urge incontinence of urine Surgical History History of hemiarthroplasty of shoulder History of laparoscopic cholecystectomy Family History Other Asthma Coronary heart disease No family history of adverse response to anesthesia Social History Smoking Status: Former smoker Second Hand Exposure: Yes ( smokes); Hx Alcohol Use: Yes Alcohol type: beer and hard liquor Hx Substance Use: No Preferred Language: Portuguese Communication Ability: Effective Visual Impairment: No Limitations Learning And Development Intern Required: No Beliefs That Will Affect Care: None marital status: Current Living Situation: Spouse Current Living Situation Comment: resides at home with Feels Safe at Home: Yes Assistive Devices: Glasses Review of Systems Review of Systems: 14 point review of systems completed and negative except as in HPI. Exam (Neuro) Physical Exam: General Exam: GEN: NAD, lying down in examination bed. HEENT: No conjunctival injection, no rhinorrhea. CV: RRR on monitor, no significant edema. PULM: Nonlabored respirations on room air. Neuro Exam: MS: Awake and Alert. Oriented to person, place, and date. Speech fluent and appropriate without dysarthria or paraphasic errors. Language intact including naming, comprehension, repetition. Cognition and memory grossly intact. Attention intact. No neglect. CN: Visual clark full, + blink to threat bilaterally. No extinction to double simultaneous stimuli. Unable to visualize fundi on fundoscopic exam. PERRLA OU. EOMI without nystagmus. Facial sensation intact to LT. Facial muscles full and symmetric. Hearing intact to finger rub bilaterally. Uvula midline with symmetric palatal elevation. SCMs and shoulder shrug normal. Tongue midline. MOTOR: Normal bulk and tone. No pronator drift. BUE strength 5/5 at deltoids, biceps, triceps, wrist flexors and extensors, and finger flexors bilaterally. BLE strength 5/5 at iliopsoas, hamstrings, quadriceps, tibialis anterior, and gastrocnemius bilaterally. REFLEXES: 1+ at biceps, triceps, brachioradialis, trace patella, and absent Achilles bilaterally. Flexor plantar responses bilaterally. SENSORY: Intact to LT throughout, no extinction to double simultaneous stimuli. COORDINATION: No dysmetria or ataxia on [id number] bilaterally. Normal Med bilaterally. GAIT: Deferred due to physical status. NIH STROKE SCALE 1A. Level of Consciousness (0-3) = 0 1B. LOC Questions (0-2) = 0 1C. LOC Commands (0-2) = 0 2. Best Horizontal Gaze (0-2) = 0 3. Visual Clark (0-3) = 0 4. Facial Palsy (0-3) = 0 5. Motor Arm Right (0-4) = 0 Left (0-4) = 0 6. Motor Leg Right (0-4) = 0 Left (0-4) = 0 7. Limb Ataxia (0-2) = 0 8. Sensory (0-2) = 0 9. Best Language (0-3) = 0 10. Dysarthria (0-2) = 0 11. Extinction and Inattention (0-2) = 0 NIHSS TOTAL = 0 Results & Data ([facility]) Vital Signs (Past 12 Hours) Vital Signs Temp Pulse Pulse Pulse Resp BP Pulse Ox 04/22/20 07:32 36.7 C 65 18 189/73 H 98 04/22/20 07:00 69 04/22/20 03:56 37.0 C 74 18 191/82 H 97 04/22/20 00:24 36.5 C 75 20 172/79 H 96 04/21/20 22:20 75 PG Care Time/CCT Total # of Minutes Spent Total Time Spent with Patient: Total time spent is greater than 50% in coordination of care (as documented) at patient's floor/unit and/or counseling patient: Coding Level of Care Code 38879 Initial Inpt Care Lvl 3 Diagnoses Altered mental status R41.82 Altered mental status type: unspecified TIA (transient ischemic attack) G45.9 Thrombocytosis D47.3 (1) Altered mental status Altered mental status type: unspecified Qualified Code(s): R41.82 - Altered mental status, unspecified
--- NOTE | 2020-04-22 13:52 | XCELERA ---
[id number]
[2020-04-22 14:17] LABS: Appearance Urine Clear (Clear); Bacteria Urine Automated Negative (Negative); Bilirubin Urine Negative (Negative); Blood Urine Negative (Negative); Cast Urine Automated 0 /lpf (0-5); Color Urine Yellow; Epithelial Cell Urine Auto 0-5 /lpf (0-5); Glucose Urine UA Negative (Negative); Ketones Urine Negative (Negative); Leukocyte Esterase Urine Trace (Negative); Nitrite Urine Negative (Negative); Protein Urine Negative (Negative); RBC Urine Automated 0-4 /hpf (0-4); Specific Gravity Urine 1.016 (1.000-1.030); Urobilinogen Urine Negative (Negative)
--- NOTE | 2020-04-22 14:47 | Hospitalist Progress Note ---
Date of Service April 22, 2020 Assessment & Plan (1) TIA (transient ischemic attack): Convincing TIA symptoms that resolved within several hours. - Started ASA/Plavix in the ED -> Continue - MRI brain showed no CVA - Neurology consulted - Appreciate recs - PT/OT/DISTANCE EDUCATION TEACHER - TTE without interatrial shunt. - FLP: LDL 57, HDL 33. Neuro recommends low-dose statin. - Will order A1c, lipids - Monitor on telemetry - Given alcohol hx and sensation of palpitations, will consider Holter monitor on discharge for possible paroxysmal afib (2) Thrombocytosis: Platelets high as long ago as . Up to 700k in 02/2020. - Heme/onc consult - ASA as above (3) Diabetes: No A1c in charts. - Get A1c - Hold metformin - Sliding scale insulin (4) HTN (hypertension): BP is 145/75 in the ED. - Continue home irbesartan - Better BP control as outpatient with goal <130/80 (5) Asthma: No shortness of breath or wheezing. - Continue home Symbicort (or hospital formulary) - Albuterol PRN (6) Alcohol abuse: Drinks occasional beer, but not really drinking heavily at this point. - Monitor for withdrawal (7) Polymyalgia rheumatica: Presently on no steroids. 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 - Continue tamsulosin (9) Severe obstructive sleep apnea: [facility] Doesn't wear it at home. - No inpatient needs (10) DVT prophylaxis: SCDs - Low DVT risk per admission calculator Admission and Anticipated Discharge Date Admission Date: April 21, 2020 Subjective No symptoms today. Reports no fevers/chills, chest pain, shortness of breath, abdominal pain, nausea, or vomiting. Physical Exam Constitutional: WD/WN, vitals as above Eyes: EOM intact bilaterally; no conjunctival abnormality ENMT: external ear and nose normal, oropharynx normal Neck: trachea midline, no thyromegaly normal visual inspection Respiratory: normal respiratory effort, lungs clear to auscultation no respiratory distress Cardiovascular: RRR, no murmur, no edema Gastrointestinal (Abdomen): Inspection/Auscultation: abdomen normal to inspection; abdomen not distended Musculoskeletal: no cyanosis or clubbing, extremities motor strength 5/5 Skin: no rashes, warm and dry Neurologic: moves all extremities and awake Psychiatric: Orientation: alert, oriented to person and cooperative Results & Data Results & Data ([facility]) Vital Signs (Past 12 Hours) Vital Signs Temp Pulse Pulse Pulse Resp BP BP 04/22/20 10:59 36.0 C L 80 20 144/77 H 04/22/20 10:57 36.4 C L 64 18 136/66 04/22/20 07:32 36.7 C 65 18 189/73 H 04/22/20 07:00 69 04/22/20 03:56 37.0 C 74 18 191/82 H Pulse Ox 04/22/20 10:59 90 04/22/20 10:57 98 04/22/20 07:32 98 04/22/20 07:00 04/22/20 03:56 97 PG Care Time/CCT Total # of Minutes Spent Total Time Spent with Patient: Total time spent is greater than 50% in co ordination of care (as documented) at patient's floor/unit and/or counseling patient: Coding Level of Care Code 93151 Subseq Hosp Care Lvl 3 Diagnoses TIA (transient ischemic attack) G45.9 Thrombocytosis D47.3 Diabetes E11.9 HTN (hypertension) I10 Asthma J45.909 Alcohol abuse F10.10 Polymyalgia rheumatica M35.3 Benign prostatic hyperplasia with urinary obstruction and other lower urinary tract symptoms N40.1; N13.8 Severe obstructive sleep apnea G47.33 DVT prophylaxis Z29.9
[2020-04-22] MEDS ORDERED: ATORVASTATIN 20 MG TAB PO SCH (21:00)
--- NOTE | 2020-04-22 21:35 | Electrocardiogram Report ---
Test Reason : Blood Pressure : / mmHG Vent. Rate : 065 BPM Atrial Rate : 065 BPM P-R Int : 196 ms QRS Dur : 112 ms QT Int : 440 ms P-R-T Axes : 065 -55 051 degrees QTc Int : 457 ms Normal sinus rhythm Left axis deviation Minimal voltage criteria for LVH, may be normal variant Septal infarct (cited on or before 20-JAN-2018) Abnormal ECG When compared with ECG of 01-MAR-2020 13:44, No significant change was found Confirmed by Collins Rudd ([id number]) on 04/22/2020 9:35:20 PM Referred By: REFERRED SELF Confirmed By:Collins Rudd
[2020-04-23 07:18] LABS: Estimated Average Glucose 163 mg/dl; Hemoglobin A1C 7.3 % (4.5-5.6)
[2020-04-23 08:06] LABS: Hematocrit (blood only) 36.1 % (42-52); Hemoglobin 11.6 g/dL (14.0-18.0); Mean Corpuscular Hemoglobin 29.3 pg (25-34); Mean Corpuscular Hgb Conc 32.1 g/dL (32-36); Mean Corpuscular Volume 91.2 fL (80-100); Mean Platelet Volume 11.5 fL (7.4-10.4); Nucleated RBC # (auto) 0.16 K/uL (0-0); Nucleated RBC % (auto) 0.8 %; Platelet Count 682 K/uL (130-400); RDW Coefficient of Variation 19.3 % (11.5-14.5); RDW Standard Deviation 63.1 fL (36.4-46.3); Red Blood Count 3.96 M/uL (4.7-6.1); White Blood Count 19.84 K/uL (4.8-10.8)
[2020-04-23] MEDS: INSULIN ASPART 100 UNITS/ML 3 ML PEN SC SCH ×2 (08:25→12:41)
[2020-04-23] MEDS: ASPIRIN 81 MG ECTAB PO SCH (08:25)
[2020-04-23] MEDS: TAMSULOSIN HCL 0.4 MG CAP PO SCH (08:25)
[2020-04-23] MEDS: CLOPIDOGREL BISULFATE 75 MG TAB PO SCH (08:25)
[2020-04-23] MEDS: IRBESARTAN 75 MG TAB PO SCH (08:25)
[2020-04-23] MEDS: FLUTICASONE/VILANTEROL 200/25MCG 14 PUFFS/INHALER INH SCH (08:25)
[2020-04-23 08:35] LABS: BUN Creatinine Ratio 14.8 (10-20); Calcium 8.4 mg/dl (8.5-10.1); Creatinine Clr Calc Pharmacy 31.6 ml/min; Est GFR (African American) 47.9; Est GFR (Non-African American) 41.4; Magnesium 2.3 mg/dl (1.8-2.4)
--- NOTE | 2020-04-23 10:51 | Neurology Progress Note ---
Date of Service April 23, 2020 Assessment & Plan (1) TIA (transient ischemic attack): Probable TIA localizing to the left cerebral hemisphere, presenting with sudden onset word finding difficulty/speech disfluency but without associated hemiparesis. Patient did have a significantly elevated blood alcohol level during his initial assessment in the emergency department and I am unable to exclude the possibility that his presenting symptoms were related to alcohol intoxication. However, he does have several stroke risk factors including diabetes mellitus and hypertension. Thrombocytosis may also be a risk factor in his case. His history of polymyalgia rheumatica is noted as well. However, temporal arteritis is probably unlikely as he does not complain of headache and does not have evidence of vasculitis on CT angiography. Continue with daily low-dose aspirin, atorvastatin, and antihypertensive management. May also continue with clopidogrel 75 mg/day for 3 weeks, after which, discontinue clopidogrel in favor of daily low-dose aspirin monotherapy. He will need to follow-up with his PCP for ongoing management of diabetes mellitus and hypertension. Would recommend an outpatient 30-day nurse monitoring to exclude atrial fibrillation. Hematology consultation regarding th rombocytosis. No further immediate neurologic recommendations. Admission and Anticipated Discharge Date Admission Date: April 21, 2020 Subjective Follow-up for suspected TIA The patient is an 89-year-old male who presented to the emergency department on April 21, 2020 with acute onset word finding difficulty that occurred while eating lunch with family. He had consumed 2 beers and believes he may have been intoxicated. He does recall having some associated dizziness but denies headache or focal weakness. His symptoms have resolved. He was seen in neurological consultation yesterday with Dr. Andrea who considered the possibility of a left MCA territory TIA. Patient's brain MRI was negative for acute infarct but did reveal small vessel ischemic disease and atrophy. CT angiography of the head and neck revealed atherosclerotic plaque at the origins of both internal carotid arteries, right 50%, left less than 50%. An echocardiogram completed yesterday was negative for obvious cardioembolic source. The left atrium was mildly dilated. No interatrial shunt identified. This morning, the patient feels well and denies having any significant or residual difficulty with word finding or language comprehension. He denies headache, dizziness, or focal weakness at this time. He does complain of occasional palpitations. His blood pressure has been elevated. The patient has been noncompliant with daily low-dose aspirin as an outpatient. Compliance with aspirin therapy and starting atorvastatin has been recommended. The patient is currently receiving daily low-dose aspirin, clopidogrel, and atorvastatin. Review of Systems Cardiovascular: + palpitations Neurologic: as per Subjective / HPI; no localized weakness, no loss of sensation and no headache(s) Results & Data ([facility]) Vital Signs (Past 12 Hours) Vital Signs Temp Pulse Pulse Resp BP BP Pulse Ox 04/23/20 07:42 36.8 C 66 18 188/78 H 182/80 H 95 04/23/20 07:18 50 L 04/23/20 06:41 36.8 C 55 L 20 161/72 H 94 04/22/20 23:12 36.3 C L 52 L 20 113/69 97 Exam (Neuro) Neurologic: Oriented to:: Person, Place and Time Memory: Short Term Intact and Remote Intact Attention: Span Intact and Concentration Intact Speech Fluency: negative Dysarthria Speech Aphasia: negative Aphasia Fund of Knowledge: Current Events, Past History and Vocabulary Cranial Nerves: Normal II, III, IV, and VII Motor Strength: Normal Lower Extremities and Normal Upper Extremities Muscle Bulk/Involuntary Movements: No Involuntary Movements; negative Muscle Atrophy Coordination: negative Dysdiadochokinesia, Finger-Nose Abnormal and Heel-Shah Abnormal Deep Tendon Reflexes: Rt Biceps: 1+, Lt Biceps: 1+, Rt Patellar: 1+ and Lt Patellar: 1+ Coding Level of Care Code 82798 Subseq Hosp Care Lvl 3 Diagnoses TIA (transient ischemic attack) G45.9
--- NOTE | 2020-04-23 12:56 | Consultation ---
Date of Consultation April 23, 2020 Assessment & Plan (1) Thrombocytosis: 89 y/o male admitted for altered mental status, possible TIA and thrombocytosis (790k) - reactive versus myeloproliferative disease (ET) - CT scan from 10/2019 showed mild splenomegaly, 13.4 cm - will check iron studies, ferritin, JAK2, CALR, MPL mutations - 15% of ET are JAK2, CALR, MPL mutation negative, so may need a BM examination - recommend outpatient followup in 1 month, if unexplained thrombocytosis persists then will need a BM biopsy - okay to be on antiplatelet therapy in the setting of TIA/stroke - however, if platelet count becomes very high (>1 million) then it can cause bleeding complications due to acquired von Willenbrand disease - case was discussed with Dr. Regalado Thank you for the courtesy of this consultation. Feel free to contact if any questions. Present on Admission?: Yes History of Present Illness Requesting Physician: Steve Regalado MD Reason for Consultation: Thrombocytosis Attending Physician: Steve Regalado MD History of Present Illness 89 y/o male referred to hematology for evaluation of thrombocytosis (790k). Patient was admitted for possible TIA. He has hx of DM, HTN, HLD. He was in his normal state of health on the day of admission when his daughter picked him up for lunch. At 2:00pm, she noted that he was uncoordinated and couldn't stand up, was "confused," and had a word-salad response to que stions. However, he was able to follow commands and act appropriately. Evaluated by neurology and started on antiplatelet therapy. Patient denies any prior hx of stroke, VTE, easy bleeding or bruising. No constitutional or vasomotor symptoms. No hx of splenectomy. Patient was seen and examined at bedside. Lab data and imaging studies were reviewed. Allergies Allergy/AdvReac Type Severity Reaction Status Date / Time Penicillins Allergy Unknown Unknown in Verified 04/21/20 17:26 childhood Home Medications Medication Instructions Recorded Confirmed Type metformin 500 mg PO QDD 01/20/18 04/21/20 History albuterol sulfate [ProAir HFA] 2 puff INHALATION Q4H PRN 01/21/18 04/21/20 History tamsulosin 0.4 mg capsule 0.4 mg PO QAM cap 04/04/19 04/21/20 History irbesartan 75 mg PO QAM 12/02/19 04/21/20 History aspirin [Aspirin Low Dose] 81 mg PO QAM 03/01/20 04/21/20 History zafirlukast 20 mg PO QAM 03/01/20 04/21/20 History budesonide-formoterol HFA 160 2 puff INHALATION BID #1 inhaler 03/23/20 04/21/20 Rx mcg-4.5 mcg/actuation aerosol inhaler psyllium husk 0.52 g PO BID 04/21/20 04/21/20 History Patient History Medical History (Updated 04/22/20 @ 10:09 by Xochilt Andrea MD) Acquired deviated nasal septum Asthma inhaler daily and prn/nebulizer prn BPH (benign prostatic hyperplasia) Cystitis Diabetes mellitus, type 2 metformin daily Hearing deficit Hypertension 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 Sleep apnea CPAP Stomach pain Urge incontinence of urine Surgical History History of hemiarthroplasty of shoulder History of laparoscopic cholecystectomy Family History Other Asthma Coronary heart disease No family history of adverse response to anesthesia Social History Smoking Status: Former smoker Second Hand Exposure: Yes ( smokes); Hx Alcohol Use: Yes Alcohol type: beer and hard liquor Hx Substance Use: No Preferred Language: Croatian Communication Ability: Effective Visual Impairment: No Limitations 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 ENT: External examination was negative for masses. Neck: Negative for masses or palpable thyromegaly. Respiratory: Lung sounds were generally clear bilaterally. Cardiovascular: Heart was RRR without significant murmur, gallops or rubs. Gastrointestinal: The abdomen was soft with normal bowel sounds. Lymphatic system: There was no palpable peripheral lymphadenopathy. Musculoskeletal System: The musculoskeletal system seemed concordant with age. Skin: The skin was negative for jaundice. Neurologic Exam: The exam was negative for any focal findings. Extremities: Negative for edema or erythema Results & Data ([facility]) Vital Signs (Past 12 Hours) Vital Signs Temp Pulse Pulse Resp BP BP Pulse Ox 04/23/20 07:42 36.8 C 66 18 188/78 H 182/80 H 95 04/23/20 07:18 50 L 04/23/20 06:41 36.8 C 55 L 20 161/72 H 94
[2020-04-23 13:59] LABS: Ferritin 171.3 ng/ml (8-388)
--- NOTE | 2020-04-23 17:28 | Discharge Summary ---
Date of Service April 23, 2020 Admission HPI Per Admitting Provider 89yo M w/ hx of DM, HTN, HLD who presents with possible TIA. Was in his normal state of health at 12:30pm today when his daughter picked him up for lunch. At 2:00pm, she noted that he was uncoordinated and couldn't stand up, was "confused," and had a word-salad response to questions. However, he was able to follow commands and act appropriately. In the ED, he spoke with the tele-stroke neurologist and was sent to CT. When the ED provider went back to assess him, he was back to baseline. Notes that he has had a recent sensation of palpitations, but no official diagnosis of afib in the past. Principal Diagnosis TIA Polycythemia Discharge Exam Constitutional WD/WN, vitals as above Eyes EOM intact bilaterally; no conjunctival abnormality ENMT external ear and nose normal, oropharynx normal Neck trachea midline, no thyromegaly normal visual inspection Respiratory normal respiratory effort, lungs clear to auscultation no respiratory distress Cardiovascular RRR, no murmur, no edema Gastrointestinal (Abdomen) Inspection/Auscultation: abdomen normal to inspection; abdomen not distended Musculoskeletal no cyanosis or clubbing, extremities motor strength 5/5 Skin no rashes, warm and dry Neurologic moves all extremities and awake Psychiatric Orientation: alert, oriented to person and cooperative Discharge Data Allergies Allergy/AdvReac Type Severity Reaction Status Date / Time Penicillins Allergy Unknown Unknown in Verified 04/21/20 17:26 childhood Consultations 04/21/20 16:37 ED Decision to Admit Stat 04/21/20 19:37 Consult Neurology Routine 04/22/20 14:47 Consult Hematology Routine Ordered Studies 04/21/20 15:31 CT angio head w con Stat CT angio neck with con Stat CT head/brain wo con Stat 04/21/20 16:40 MR brain wo con Stat Hospital Course (1) TIA (transient ischemic attack): Convincing TIA symptoms that resolved within several hours. - Started ASA/Plavix in the ED -> Continue both x 21 days, then just ASA. - MRI brain showed no CVA - Neurology consulted - Appreciate recs - PT/OT/JAVA MOBILE DEVELOPER - TTE without interatrial shunt. - FLP: LDL 57, HDL 33. Neuro recommends low-dose statin. - Will order A1c, lipids - Monitor on telemetry - Given alcohol hx and sensation of palpitations, will consider Holter monitor on discharge for possible paroxysmal afib (2) Thrombocytosis: Platelets high as long ago as . Up to 700k in 02/2020. - Heme/onc consulted - Ddx includes reactive vs. myelopreliferative disease. Labs for iron, TIBC, ferritin, BCR-ABL, JAK2, CALR, and other sent. - ASA as above - Follow up with heme-onc in 4 weeks. (3) Diabetes: A1c was 7.3% this admission. - Held metformin while inpatient - Can work with PCP on this. (4) HTN (hypertension): BP was elevated inpatient. - Continue home irbesartan, but increased to 150 mg PO HS (better at night for improved outcomes). - Better BP control as outpatient with goal <130/80 (5) Asthma: No shortness of breath or wheezing. - Continue home Symbicort (or hospital formulary) - Albuterol PRN (6) Alcohol abuse: Drinks occasional beer, but not really drinking heavily at this point. - Monitor for withdrawal (7) Polymyalgia rheumatica: Presently on no steroids. 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 - Continue tamsulosin (9) Severe obstructive sleep apnea: [facility] Doesn't wear it at home. - No inpatient needs (10) DVT prophylaxis: SCDs - Low DVT risk per admission calculator Total Time Total Time Spent Total Time Spent (In Minutes): 35 Discharge Plan Discharge Items Patient Disposition: Home - Home Health Services Reason For Visit: TIA Discharge Diagnosis: TIA Activity: Resume your previous activity Non-emergency contact: Primary Care Provider, Neurologist and Oncologist Call non-emergency contact if: your symptoms worsen and your pain is not controlled Follow-up/Referrals: Sukhwinder Kincaid DO [Physician] - (The office will call you with an appt date and time. ) Xochilt Andrea MD [Physician] - 06/13/20 9:30 am (You have an appt in Neurology on 06/13 @ 0930. It is important that you keep this appt. Please arrive 15 mins prior to your appt time. [address] [phone]) James Sinha MD [Primary Care Provider] - (Please call your Doctor and schedule an appt with them to be seem with 1-2 weeks. ) Diet: Carb Consistent or DM2 and Heart Healthy Addtl Attending Provider Instructions: You were admitted to the hospital with symptoms that were concerning for a TIA. Luckily, they resolved on their own. We noted that your platelets are quite high, so we sent some blood work that will help us determine if this is an issue that needs further care. The blood work won't be back for about 1 week or so, so please follow up with the hematology doctors in 2-3 weeks to be sure it is all back. In the meantime, you should be on a baby aspirin (81 mg) plus clopidogrel 75 mg for 3 weeks. After 3 weeks, please switch to just aspirin alone. This was approved by the neurology team as well as the hematology team, so everyone is in agreement. It is very important that you take the aspirin. Without it, your high platelet count could cause another TIA or even stroke. We also increased your irbesartan to 150 mg as your blood pressure has run high in the hospital. Please actually take this AT NIGHT, as this gives you more benefit without any bad side effects. Finally, we added a low-dose statin which can help stabilize the plaques and prevent a stroke or heart attack. Pending Studies at Discharge: No Stand-Alone Forms: My [facility]DayMakeover, Smoking Cessation Medications and DC Order Prescriptions: New atorvastatin 20 mg Tablet 20 mg PO HS Qty: 30 RF: 0 clopidogrel 75 mg Tablet 75 mg PO QAM Qty: 21 RF: 0 irbesartan 150 mg tablet 150 mg PO HS Qty: 30 RF: 1 Continued budesonide-formoterol [Symbicort] 160-4.5 mcg/actuation HFA aerosol inhaler 2 puff inhalation BID Qty: 1 RF: 11 tamsulosin 0.4 mg capsule 0.4 mg PO QAM RF: 0 metformin 500 mg Tablet,Er Micky.Retention 24 Hr 500 mg PO QDD RF: 0 albuterol sulfate [ProAir HFA] 90 mcg/actuation Hfa Aerosol Inhaler 2 puff INHALATION Q4H PRN (Reason: Shortness Of Breath) RF: 0 aspirin [Aspirin Low Dose] 81 mg Tablet,Delayed Release (Dr/Ec) 81 mg PO QAM RF: 0 zafirlukast 20 mg Tablet 20 mg PO QAM RF: 0 psyllium husk 0.52 gram Capsule 0.52 g PO BID RF: 0 Discharge Orders: Discharge Order (Routine); Ordered 04/23/20 Ordered By: Steve Salcedo/Other Patient Handouts: Managing Type 2 Diabetes Admission Data Admit Date/Time: 04/21/20 16:59 Attending Provider: Steve Regalado Admit Provider: Steve Regalado Primary Care Provider: James Sinha Other Providers: Steve Regalado ; Xochilt Andrea ; Sukhwinder Kincaid V. Coding Level of Care Code D/C Day Management >30 mins Diagnoses TIA (transient ischemic attack) G45.9 Thrombocytosis D47.3 Diabetes E11.9 HTN (hypertension) I10 Asthma J45.909 Alcohol abuse F10.10 Polymyalgia rheumatica M35.3 Benign prostatic hyperplasia with urinary obstruction and other lower urinary tract symptoms N40.1; N13.8 Severe obstructive sleep apnea G47.33 DVT prophylaxis Z29.9
== END 2020-04-23 15:25 | disposition home health service (06) ==
LOC: ED 15:20 → 2W 16:59 → INTOOBSV 16:59 → 2W 19:03